=== PATIENT | female | born 1980 | race Caucasian/White ===

== ENCOUNTER 2019-12-03 15:52 | Emergency (ER) | payer OTHER, SELFPAY ==
[2019-12-03 17:18] VITALS: BP 163/97; PULSE 109; RESP 14; TEMP 37.6; O2SAT 97
--- NOTE | 2019-12-03 17:32 | ED.URI ---
HPI - URI/Sore Throat General Chief Complaint: Upper Respiratory Infection Stated Complaint: throat pain, body pain Time Seen by Provider: 12/03/19 17:15 Source: patient Mode of arrival: ambulatory History of Present Illness HPI Narrative: Kimberlyn is a 39-year-old female patient. She presents ambulatory to the emergency room. She states that she has been coughing for about a week. She states that this is from sinus drainage. She has sinus problems and sinus drainage. She tries to cough out the drainage which drains into the back of the throat. She thinks that this has made her muscles cramp up. She gets muscle cramps in the limbs. She has had no fever. She developed a sore throat since last night. Her tonsils are swollen. The pharynx is very red and inflamed . No vomiting. No diarrhea. No other complaints MD elicited complaint: cough, sore throat, nasal congestion, sinus pain and other ( sinus drainage) Pertinent past history: other ( history of GERD) Onset (ago): day(s) ( see HPI narrative) Consistency: intermittent Severity: moderate Description of mucous: clear and yellow Able to tolerate fluids by mouth: Yes Exacerbating factors: nothing Relieving factors: nothing Context: other ( see HPI narrative) Associated symptoms: other ( see HPI narrative for details) Treatments prior to arrival: acetaminophen Related Data Home Medications Medication Instructions Recorded Confirmed omeprazole 40 mg PO DAILY 12/03/19 12/03/19 Allergies Allergy/AdvReac Type Severity Reaction Status Date / Time Penicillins Allergy Unknown Hives Verified 12/03/19 17:18 adhesive tape Allergy BUMPS/ITCHY Verified 06/20/12 11:45 amoxicillin Allergy Hives Verified 12/03/19 17:18 Review of Systems Review of Systems: All systems reviewed & are unremarkable except as noted in HPI and below Constitutional: Constitutional: Reports as per HPI, Reports no additional constitutional complaints, Denies chills and Denies fever(s) Eyes: Eyes: Reports as per HPI, Reports no additional eye complaints and Denies change in vision ENT: Reports system reviewed and no additional complaints, except as documented, Reports nasal congestion and Reports sore throat Comments: sinus congestion sinus drainage and sinus pressure Cardiovascular: Cardiovascular: Reports as per HPI, Denies chest pain and Denies radiating jaw, neck or arm pain Respiratory: Respiratory: Reports as per HPI, Reports cough, Denies dyspnea and Denies wheezing Gastrointestinal: Gastrointestinal: Reports as per HPI, Denies diarrhea, Denies nausea and Denies vomiting Genitourinary: Genitourinary: Reports no additional female genitourinary complaints, Denies hematuria, Denies dysuria, Denies flank pain and Denies urinary incontinence Musculoskeletal: Musculoskeletal: Reports no additional musculoskeletal complaints and Reports muscle cramps Integumentary/Breasts: Skin/Breast: Reports system reviewed and no additional complaints, except as docu, Denies erythema and Denies rash Neurologic: Reports system reviewed and no additional complaints, except as documented, Denies vertigo, Denies dizziness, Denies syncope, Denies headache(s), Denies focal weakness, Denies numbness and Denies weakness Psychiatric: Psychiatric: Reports no additional psychiatric complaints, Denies anxiety and Denies depression Endocrine: Endocrine: Reports no additional endocrine complaints and Denies polydipsia Hematologic/Lymphatic: Hematologic/Lymphatic: Reports no additional hematologic/lymphatic complaints, Denies easy bleeding and Denies easy bruising Allergic/Immunologic: Allergic/Immunologic: Reports no additional allergic/immunologic complaints, Denies lip swelling and Denies tongue swelling [facility] Past Medical History Medical History (Updated 12/03/19 @ 18:33 by Giovany Negron MD) Erythema nodosum Factor 5 Leiden mutation, heterozygous GERD (gastroesophageal reflux disease) Surgical History Surgical H
[2019-12-03 17:46] LABS: Basophils Absolute Auto 0.09 K/mm3 (0.00-0.10); Basophils Percent Auto 0.5 % (0.0-1.0); Eosinophils Absolute Auto 0.05 K/mm3 (0.02-0.50); Eosinophils Percent Auto 0.3 % (1.0-6.0); Hematocrit 43.6 % (35.0-49.0); Hemoglobin 14.2 g/dL (12.0-15.0); Immature Granulocyte Absolute 0.12 K/mm3 (0.00-0.00); Immature Granulocyte Percent A 0.7 % (0.0-0.0); Lymphocytes Absolute Auto 2.28 K/mm3 (1.10-4.50); Lymphocytes Percent Auto 13.8 % (18.0-42.0); Mean Corpuscular HGB Conc 32.6 g/dL (32.0-36.0); Mean Corpuscular Hemoglobin 28.4 pg (27.0-31.0); Mean Corpuscular Volume 87.2 fL (78.0-102.0); Mean Platelet Volume 11.3 fl (9.2-11.8); Monocytes Absolute Auto 1.13 K/mm3 (0.10-0.90); Monocytes Percent Auto 6.8 % (2.0-11.0); Neutrophils Absolute Auto 12.9 K/mm3 (1.7-7.2); Neutrophils Percent Auto 77.9 % (50.0-70.0); Platelet Count Result 229 K/mm3 (150-420); Red Cell Distribution Width 14.3 % (11.6-14.4); White Blood Count 16.5 K/mm3 (4.8-10.8)
[2019-12-03 18:02] LABS: Influenza Control Valid (Valid)
[2019-12-03 18:13] LABS: Alanine Aminotransferase 27 U/L (14-59); Albumin Level 3.7 g/dL (3.4-5.0); Alkaline Phosphatase 113 U/L (46-116); Anion Gap 12.6 mmol/L (7-16); Aspartate Amino Transferase 19 U/L (15-37); Bilirubin,Total 0.7 mg/dL (0.00-1.00); Blood Urea Nitrogen 14 mg/dL (7-18); Calcium 9.3 mg/dL (8.5-10.1); Carbon Dioxide 29 mmol/L (21-32); Chloride 100 mmol/L (98-108); Estimated CRCL calculation 78 ml/min; Estimated Glomerular Filt Rate > 60; Glucose 105 mg/dL (70-99); Magnesium 2.1 mg/dL (1.8-2.4); Osmolality Calculated 284 mOsm/kg (285-295); Potassium 4.6 mmol/L (3.5-5.1); Sodium 137 mmol/L (136-145); Total Protein 8.8 g/dL (6.4-8.2)
[2019-12-03 18:41] VITALS: RESP 14; O2SAT 100
== END 2019-12-03 18:38 | disposition home or self-care (01) ==
PROVIDERS: Emergency Provider Surgery; PCP Internal Medicine
DX: J01.10 Acute frontal sinusitis, unspecified (principal); F17.200 Nicotine dependence, unspecified, uncomplicated
CPT/HCPCS: 36415; 80053; 83735; 85025; 87081; 87804; 87880; 99282; 99283

== ENCOUNTER 2020-04-01 02:50 | Emergency (ER) | payer OTHER, SELFPAY ==
[2020-04-01 02:50] VITALS: BP 166/95; PULSE 107; RESP 20; TEMP 36.9; O2SAT 98
--- NOTE | 2020-04-01 02:58 | ED.EXTPRO ---
HPI - Extremity Problem General Chief complaint: Unspecified Stated complaint: Right Leg Pain Time Seen by Provider: 04/01/20 02:59 Source: patient and RN notes reviewed Mode of arrival: ambulatory Limitations: no limitations History of Present Illness HPI Narrative: patient states that she stretched out her leg yesterday and felt pain her right leg just below her knee posteriorly. She then notices seemed to begin to swell around her ankle, leg hurts when she walks on it. MD Complaint: extremity pain and extremity swelling Onset (ago): day(s) (1) Pain Consistency: intermittent Location: right and lower extremity Quality: aching and dull Radiation: none Relieving factors: nothing Exacerbating factors: weight bearing Associated symptoms: denies other symptoms Related Data Home Medications Medication Instructions Recorded Confirmed omeprazole 40 mg PO DAILY 12/03/19 04/01/20 Allergies Allergy/AdvReac Type Severity Reaction Status Date / Time Penicillins Allergy Unknown Hives Verified 12/03/19 17:18 adhesive tape Allergy BUMPS/ITCHY Verified 06/20/12 11:45 amoxicillin Allergy Hives Verified 12/03/19 17:18 Review of Systems Review of Systems: All systems reviewed & are unremarkable except as noted in HPI and below Constitutional: Constitutional: Denies chills and Denies fever(s) Eyes: Eyes: Reports no additional eye complaints ENT: Reports system reviewed and no additional complaints, except as documented Cardiovascular: Cardiovascular: Reports chest pain (Only once yesterday none since.) Respiratory: Respiratory: Reports no additional respiratory complaints Gastrointestinal: Gastrointestinal: Reports no additional gastrointestinal complaints Musculoskeletal: Musculoskeletal: Reports no additional musculoskeletal complaints Integumentary/Breasts: Skin/Breast: Reports system reviewed and no additional complaints, except as docu Neurologic: Reports system reviewed and no additional complaints, except as documented Psychiatric: Psychiatric: Reports no additional psychiatric complaints Hematologic/Lymphatic: Hematologic/Lymphatic: Reports no additional hematologic/lymphatic complaints Allergic/Immunologic: Allergic/Immunologic: Reports no additional allergic/immunologic complaints [facility] Past Medical History Medical History (Updated 04/01/20 @ 03:41 by Oscar Jacobs MD) Erythema nodosum Factor 5 Leiden mutation, heterozygous GERD (gastroesophageal reflux disease) Obesity Surgical History Surgical History Ankle fracture H/O tubal ligation Hx of cholecystectomy Family History Family History Father Hypertension Family history of elevated blood lipids Sibling Hypertension Mother Family history of rheumatoid arthritis Family history of chronic obstructive pulmonary disease Social History Social History Smoking status: Current every day smoker Tobacco type: cigarettes Alcohol intake: current Substance use: never Exam Const: General: healthy appearing, no acute distress and alert Nutritional Appearance: well nourished and obese morbidly obese Orientation/consciousness: patient oriented x3 HENMT: Head: normal to inspection Ears: external ears normal General nose exam: Normal external nose present Face and sinus: normal facial exam Mouth: Yes lip normal and Yes moist mucous membranes Eyes: Conjunctivae: conjunctivae normal Pupils: Equal, round and reactive pupils present EOM: EOMs intact bilaterally Neck: Neck: normal visual inspection Resp: Effort & Inspection: normal respiratory effort Auscultation: clear to auscultation bilaterally Cardio: Rate: regular rate Rhythm: regular rhythm GI: Auscultation: normal bowel sounds Back/Spine/Pelvis: Cervical Spine: cervical ROM normal Thoracic/Lumbar Spine: thoraco-lum
[2020-04-01 03:17] LABS: Basophils Absolute Auto 0.05 K/mm3 (0.00-0.10); Basophils Percent Auto 0.5 % (0.0-1.0); Eosinophils Absolute Auto 0.38 K/mm3 (0.02-0.50); Eosinophils Percent Auto 3.5 % (1.0-6.0); Hematocrit 39.7 % (35.0-49.0); Hemoglobin 12.8 g/dL (12.0-15.0); Immature Granulocyte Absolute 0.05 K/mm3 (0.00-0.00); Immature Granulocyte Percent A 0.5 % (0.0-0.0); Lymphocytes Absolute Auto 3.93 K/mm3 (1.10-4.50); Lymphocytes Percent Auto 36.6 % (18.0-42.0); Mean Corpuscular HGB Conc 32.2 g/dL (32.0-36.0); Mean Corpuscular Hemoglobin 27.9 pg (27.0-31.0); Mean Corpuscular Volume 86.7 fL (78.0-102.0); Mean Platelet Volume 10.9 fl (9.2-11.8); Monocytes Absolute Auto 0.59 K/mm3 (0.10-0.90); Monocytes Percent Auto 5.5 % (2.0-11.0); Neutrophils Absolute Auto 5.7 K/mm3 (1.7-7.2); Neutrophils Percent Auto 53.4 % (50.0-70.0); Platelet Count Result 209 K/mm3 (150-420); Red Blood Count 4.58 M/mm3 (4.20-5.40); Red Cell Distribution Width 14.5 % (11.6-14.4); White Blood Count 10.7 K/mm3 (4.8-10.8)
[2020-04-01 03:29] LABS: Anion Gap 13.1 mmol/L (7-16); Blood Urea Nitrogen 17 mg/dL (7-18); Calcium 8.5 mg/dL (8.5-10.1); Carbon Dioxide 27 mmol/L (21-32); Chloride 106 mmol/L (98-108); Estimated CRCL calculation 56 ml/min; Estimated Glomerular Filt Rate 42; Glucose 112 mg/dL (70-99); Osmolality Calculated 296 mOsm/kg (285-295); Potassium 4.1 mmol/L (3.5-5.1); Sodium 142 mmol/L (136-145)
[2020-04-01 03:30] LABS: CRP 2.9 mg/dL (0.0-0.9)
[2020-04-01 03:31] LABS: D Dimer 0.73 mg/L (0.19-0.50)
[2020-04-01] MEDS: APIXABAN 2.5 MG TABLET 10 MG (03:50)
[2020-04-01 03:57] VITALS: BP 166/95; PULSE 100; RESP 20; TEMP 37.1; O2SAT 97
[2020-04-03 14:51] LABS: Creatine Kinase 642 U/L (26-192)
== END 2020-04-01 03:59 | disposition home or self-care (01) ==
PROVIDERS: Emergency Provider Emergency Medicine; PCP Internal Medicine
DX: I82.4Z1 Acute embolism and thrombosis of unspecified deep veins of right distal lower extremity (principal)
CPT/HCPCS: 36415; 80048; 82550; 85025; 85380; 86140; 99283; A9270

== ENCOUNTER 2020-04-01 04:48 | Emergency (ER) | payer OTHER, SELFPAY ==
--- NOTE | ~2020-04-01 | CT_ITS ---
EXAMINATION: CTA chest PE protocol DATE: 04/01/2020 05:26 INDICATION: Chest tightness TECHNIQUE: Computed tomography (CT) pulmonary angiogram of the chest was performed with 100 mL Omnipa que-350 intravenous contrast. Additional 3D reconstructions utilizing coronal maximum intensity proje ction (MIP) were performed. Automated exposure control and iterative reconstruction technique were em ployed. The dose-length product was 911.99 mGy-cm. COMPARISON: None FINDINGS: Good contrast opacification of the pulmonary arteries. There is mild streak artifact from dense contr ast in the superior vena cava and right atrium. Mild scattered respiratory motion artifact which does not significantly limit evaluation. No pulmonary embolism. No pneumonia, pulmonary edema or other pu lmonary infiltrates. No pleural effusion or pneumothorax. Heart size is normal. No pericardial effusi on. Thoracic aorta is normal in caliber with no dissection. Cholecystectomy clips the gallbladder fos sa. Mild thoracic spondylosis. IMPRESSION: 1. No pulmonary embolism or other acute cardiopulmonary disease. Reviewed, dictated and finalized at location A.
--- NOTE | 2020-04-01 04:52 | ED.CHESTPAIN ---
HPI - Chest Pain General Chief Complaint: Chest Pain Stated Complaint: Shakiness Time Seen by Provider: 04/01/20 04:48 Source: patient and RN notes reviewed Mode of arrival: ambulatory Limitations: no limitations History of Present Illness HPI narrative: Patient returns after just being discharged. She called and stated that she was feeling shaky all over. She also complained of some chest tightness. She had this yesterday also but then it completely resolved and when she left at discharge earlier today she denied any chest pain. MD complaint: chest discomfort Onset (ago): minute(s) (30) Timing of current episode: constant Prior episodes: Yes Onset: during rest Pain location: parasternal Pain radiation: none Severity: moderate Quality: tightness Relieving factors: nothing Exacerbating factors: nothing Treatment prior to arrival: other ( Given Eliquis for possible DVT 1 hour ago) Risk Factors Pulmonary embolism risk factors: clotting disorder, history of deep vein thrombosis and morbid obesity Related Data On Oral Contraceptives: No Home Medications Medication Instructions Recorded Confirmed omeprazole 40 mg PO DAILY 12/03/19 04/01/20 Allergies Allergy/AdvReac Type Severity Reaction Status Date / Time Penicillins Allergy Unknown Hives Verified 12/03/19 17:18 adhesive tape Allergy BUMPS/ITCHY Verified 06/20/12 11:45 amoxicillin Allergy Hives Verified 12/03/19 17:18 Review of Systems Eyes: Eyes: Reports no additional eye complaints ENT: Reports system reviewed and no additional complaints, except as documented Cardiovascular: Cardiovascular: Reports no additional cardiovascular complaints Gastrointestinal: Gastrointestinal: Reports no additional gastrointestinal complaints Musculoskeletal: Musculoskeletal: Reports no additional musculoskeletal complaints Integumentary/Breasts: Skin/Breast: Reports system reviewed and no additional complaints, except as docu Neurologic: Reports system reviewed and no additional complaints, except as documented Psychiatric: Psychiatric: Reports no additional psychiatric complaints Endocrine: Endocrine: Reports no additional endocrine complaints Hematologic/Lymphatic: Hematologic/Lymphatic: Reports no additional hematologic/lymphatic complaints [facility] Past Medical History Medical History Erythema nodosum Factor 5 Leiden mutation, heterozygous GERD (gastroesophageal reflux disease) Obesity Surgical History Surgical History Ankle fracture H/O tubal ligation Hx of cholecystectomy Social History Social History Smoking status: Current every day smoker Tobacco type: cigarettes Alcohol intake: current Substance use: never Exam Const: General: healthy appearing and no acute distress Nutritional Appearance: well nourished and obese morbidly obese Orientation/consciousness: patient oriented x3 HENMT: Head: normal to inspection Ears: external ears normal General nose exam: Normal external nose present Face and sinus: normal facial exam Mouth: Yes lip normal and Yes moist mucous membranes Eyes: Conjunctivae: conjunctivae normal Pupils: Equal, round and reactive pupils present Neck: Neck: normal visual inspection Resp: Effort & Inspection: normal respiratory effort Auscultation: clear to auscultation bilaterally Cardio: Rate: tachycardic Rhythm: regular rhythm GI: Auscultation: normal bowel sounds Back/Spine/Pelvis: Cervical Spine: cervical ROM normal Thoracic/Lumbar Spine: thoraco-lumbar ROM normal Skin: General skin exam: normal color Neuro: General: patient oriented x3, moves all extremities and no focal motor deficits Speech: normal speech Gait exam (Neuro): Normal gait present Extrem: Other: Exam for right lower extremity is unchanged from earlier visit today. Still has mild war
--- NOTE | 2020-04-01 04:54 | ECG_ITS ---
Measurements Intervals [place] Rate: 99 P: 31 OR: 149 QRS: -6 QRSD: 89 T: 15 QT: 353 QTc: 454 Interpretive Statements SINUS RHYTHM BORDERLINE ST-T WAVE ABNORMALITY- ANTERIOR LEADS BORDERLINE ECG Electronically Signed On 04-01-2020 8:33:37 CDT by Fabrice Barker D.O.
[2020-04-01 05:07] VITALS: PULSE 99
[2020-04-01 05:10] VITALS: BP 178/80; PULSE 112; RESP 20; TEMP 37.4; O2SAT 98
--- NOTE | 2020-04-01 05:16 | PC.NURSE ---
pt to xray for ct scan per wheelchair with jennifer
[2020-04-01 05:20] LABS: Troponin I < 0.02 ng/mL (0.00-0.056)
--- NOTE | 2020-04-01 05:25 | PC.NURSE ---
pt returned to room, alarm security or surveillance monitor applied.
--- NOTE | 2020-04-01 05:34 | PC.NURSE ---
pt denies chest pain or chest tightness at this time, pt states only when i shake, like im nervous . pt on cell phone talking.
[2020-04-01 06:43] VITALS: BP 141/62; PULSE 88; RESP 20; TEMP 37.1; O2SAT 97
== END 2020-04-01 06:50 | disposition home or self-care (01) ==
PROVIDERS: Emergency Provider Emergency Medicine; PCP Internal Medicine
DX: F41.1 Generalized anxiety disorder (principal); R07.89 Other chest pain
CPT/HCPCS: 36415; 71275; 84484; 93005; 99284; Q9965

== ENCOUNTER 2020-04-01 07:56 | Outpatient (CLI) | payer OTHER, SELFPAY ==
--- NOTE | ~2020-04-01 | US_ITS ---
EXAMINATION:US venous doppler LE RT INDICATION:Thrombosis of the deep veins of the lower extremity. Right leg pain and swelling. TECHNIQUE: Multiple grayscale, color flow and Doppler images of the right lower extremity deep venous systems were obtained and reviewed. COMPARISON:No prior studies for comparison. FINDINGS: The common femoral, superficial femoral and popliteal veins demonstrate normal respiratory variation, augmentation and compressibility. Color flow is also seen within the posterior tibial, pe roneal, greater saphenous and profunda veins. IMPRESSION: 1: No lower extremity deep venous thrombosis. Reviewed, dictated and finalized at location A.
== END 2020-04-01 07:57 | disposition home or self-care (01) ==
PROVIDERS: PCP Internal Medicine; Visit Provider Emergency Medicine
DX: I82.409 Acute embolism and thrombosis of unspecified deep veins of unspecified lower extremity (principal)
CPT/HCPCS: 93971

== ENCOUNTER 2020-04-02 11:36 | Outpatient (CLI) | payer OTHER, SELFPAY ==
--- NOTE | 2020-04-02 12:00 | ECG_ITS ---
Measurements Intervals [place] Rate: 79 P: 9 MS: 149 QRS: 29 QRSD: 84 T: 36 QT: 383 QTc: 441 Interpretive Statements SINUS RHYTHM DELAYED PRECORDIAL R/S TRANSITION BORDERLINE ST-T WAVE ABNORMALITY- ANTERIOR LEADS BASELINE ARTIFACT- III, AVF BORDERLINE ECG Electronically Signed On 04-02-2020 12:27:11 CDT by Fabrice Barker D.O.
[2020-04-02 12:40] LABS: BNP 98.3 pg/mL (0-100)
[2020-04-02 12:42] LABS: Alanine Aminotransferase 41 U/L (14-59); Albumin Level 3.4 g/dL (3.4-5.0); Alkaline Phosphatase 99 U/L (46-116); Anion Gap 11.5 mmol/L (7-16); Aspartate Amino Transferase 45 U/L (15-37); Bilirubin,Total 0.4 mg/dL (0.00-1.00); Blood Urea Nitrogen 13 mg/dL (7-18); CRP 2.3 mg/dL (0.0-0.9); Calcium 8.8 mg/dL (8.5-10.1); Carbon Dioxide 30 mmol/L (21-32); Chloride 104 mmol/L (98-108); Estimated Glomerular Filt Rate > 60; Free T4 Free Thyroxine 1.07 ng/dL (0.76-1.46); Glucose 98 mg/dL (70-99); Osmolality Calculated 292 mOsm/kg (285-295); Potassium 4.5 mmol/L (3.5-5.1); Sodium 141 mmol/L (136-145); Thyroid Stimulating Hormone 1.56 uIU/mL (0.36-3.74); Total Protein 7.9 g/dL (6.4-8.2)
[2020-04-02 12:44] LABS: Creatine Kinase 1830 U/L (26-192); Troponin I < 0.02 ng/mL (0.00-0.056)
[2020-04-05 02:57] LABS: Hepatitis A Antibody IgM Nonreactive; Hepatitis B Core Antibody Nonreactive (Nonreactive); Hepatitis B Surface Antigen Nonreactive (Nonreactive); Hepatitis C Signal to Cutoff 0.04 ratio (<1.00); Hepatitis C Virus Antibody Nonreactive (Nonreactive)
== END 2020-04-02 11:37 | disposition home or self-care (01) ==
LOC: CHSLAB 11:37
PROVIDERS: PCP Internal Medicine; Visit Provider Internal Medicine
DX: R94.31 Abnormal electrocardiogram [ECG] [EKG] (principal); R07.9 Chest pain, unspecified; R06.00 Dyspnea, unspecified; R94.5 Abnormal results of liver function studies
CPT/HCPCS: 36415; 80053; 80074; 82550; 82553; 83880; 84439; 84443; 84481; 84484; 85380; 86140; 93005

== ENCOUNTER 2020-04-03 14:15 | Outpatient (CLI) | payer OTHER, SELFPAY ==
--- NOTE | 2020-04-03 14:22 | ECHO_ITS ---
Patient Info Name: Kimberlyn Oviedo Age: 39 years : 1980 Gender: Female Ht: 62 in Wt: 237 lbs BSA: 2.23 m2 HR: 84 bpm BP: 154 / 84 mmHg Heart Rhythm: Sinus Rhythm Technical Quality: Fair Exam Date: 04/03/2020 3:07 PM Exam Location: [facility] Patient Status: Outpatient Admit Date: 04/03/2020 Staff Ordering Physician: Isaiah Esteves MD Pharmacy Consultant: Komal Gamble RDCS Attending Provider: Isaiah Esteves MD Exam Type: CA echo doppler color flow Study Info Indications R94.31 - Abnormal electrocardiogram ECG EKG Complete two-dimensional, color flow and Doppler transthoracic echocardiogram is performed. Strain analysis performed. History/Risk Factors Hypertension: No Dyslipidemia: No Congenital Heart Disease (CHD): No Peripheral Arterial Disease (PAD): No Myocardial Infarction (TN): No Chronic Lung Disease: No Obesity: Yes Renal Disease: No Coronary Artery Disease (CAD) No Congestive Heart Failure (CHF): No Cardiomyopathy/LV Systolic Dysfunction: No Date of Last Tobacco Use: 04/03/2020 Diabetes Mellitus: No COPD: No Tobacco Use: Current - Every Day If Any Current, Tobacco Type: Cigarettes If Current - Every Day \T\ Cigarettes, Amount: Heavy Tobacco Use (>=10/day) Cerebrovascular Disease: No Deep Vein Thrombosis (DVT): None Dialysis: None Frailty Scale (CSHA): 2: Well Cardiac Arrest: No Prior Interventions Pacemaker: No PCI: No CABG: No Valve Surgery: No ICD: No PV Intervention: None Heart Transplant: No Summary 1. Left ventricular chamber dimension is normal. 2. Left ventricular systolic function is normal, estimated at 60-65%. 3. The left ventricular diastolic function is grade I diastolic dysfunction. 4. E/e' is not calculated. 5. Global longitudinal strain is abnormal at -12.5%. 6. Left atrial chamber dimension is mildly enlarged. 7. No pulmonary hypertension, estimated pulmonary arterial systolic pressure is 23 mmHg. Recommendations * Smoking cessation counseling is recommended for this patient. Left Ventricle E/e' is not calculated. Global longitudinal strain is abnormal at -12.5%. Left ventricular chamber dimension is normal. Left ventricular systolic function is normal, estimated at 60-65%. The left ventricular diastolic function is grade I diastolic dysfunction. Right Ventricle Right ventricular chamber dimension is normal. Right ventricular systolic function is normal. Left Atria Left atrial chamber dimension is mildly enlarged. Right Atria Right atrial chamber dimension is normal. Aortic Valve The aortic valve is trileaflet. There is no aortic valve stenosis. There is no aortic valve regurgitation. Pulmonic Valve There is no pulmonic regurgitation. Mitral Valve There is no mitral valve stenosis. There is no mitral valve regurgitation. Tricuspid Valve There is no tricuspid valve regurgitation. No pulmonary hypertension, estimated pulmonary arterial systolic pressure is 23 mmHg. Pericardium/Pleural There is no pericardial effusion. Inferior Vena Cava Normal inferior vena cava with >50% collapse upon inspiration consistent with normal right atrial pressure, 5 mmHg. Aorta The aortic root size at the sinus of Valsalva is normal. Left Ventricular Outflow Tract Name
== END 2020-04-03 14:16 | disposition home or self-care (01) ==
LOC: CHSIMG 14:16
PROVIDERS: PCP Internal Medicine; Visit Provider Internal Medicine
DX: R94.31 Abnormal electrocardiogram [ECG] [EKG] (principal)
CPT/HCPCS: 93306

== ENCOUNTER 2020-04-04 09:47 | Outpatient (CLI) | payer OTHER, SELFPAY ==
--- NOTE | ~2020-04-04 | US_ITS ---
US right upper quadrant DATE: 04/04/2020 12:25 INDICATION: Elevated liver enzymes TECHNIQUE: Real-time imaging of liver, pancreas, gallbladder areas COMPARISON: 06/18/2019 CT abdomen pelvis FINDINGS: No hepatic or pancreatic space-occupying mass lesion is evident. Normal hepatopedal portal venous flow direction. The gallbladder is surgically absent. The common bile duct measures 4 mm, within normal range. IMPRESSION: Status post cholecystectomy Reviewed, dictated and finalized at Location A. Reviewed, dictated and finalized at location A. IMPRESSION: Status post cholecystectomy
== END 2020-04-04 09:48 | disposition home or self-care (01) ==
PROVIDERS: PCP Internal Medicine; Visit Provider Internal Medicine
DX: R94.5 Abnormal results of liver function studies (principal)
CPT/HCPCS: 76705

== ENCOUNTER 2020-12-30 23:14 | Observation (INO) | payer OTHER, SELFPAY ==
--- NOTE | ~2020-12-30 | XR_ITS ---
EXAMINATION: XR chest 1V portable 12/30/2020 23:54 INDICATION: Chest pain PROCEDURE: AP portable chest COMPARISON: 12/11/2012 FINDINGS: The lungs are clear. The cardiomediastinal silhouette is within normal limits. There are no pleural effusions. There is no pneumothorax suspected. IMPRESSION: 1: NO ACUTE CARDIOPULMONARY DISEASE. Reviewed, dictated and finalized at location A. R PROFESSIONAL ENGINEER
--- NOTE | ~2020-12-30 | CT_ITS ---
EXAMINATION: CT brain wo con EXAM DATE: 12/31/2020 09:03 INDICATION: General headache, right eye visual disturbance. Left-sided head paresthesia. TECHNIQUE: Spiral CT of the head was performed without contrast. Axial, coronal and sagittal images were reviewed. The dose-length product (DLP) for this examination was 605.33 mGy-cm. The exposure w as tailored according to patient size, and iterative reconstruction (ASIR) was used as additional dos e reduction technique. Comparison is made to prior examination from 05/14/2014. FINDINGS: There is no acute intraparenchymal hemorrhage. No evidence of intraparenchymal brain mass lesion. No evidence of acute infarction. There is no mass effect or midline shift. The ventricles are normal in size. There are no extra-axial collections. There are no acute calvarial fractures. T he orbits are unremarkable. Soft tissue is unremarkable. The visualized sinuses and mastoid air petar ls are well aerated. IMPRESSION: 1. Unremarkable head CT examination. Reviewed, dictated and finalized at location B. [employer]
[2020-12-30 23:15] VITALS: BP 159/86; PULSE 114; RESP 20; TEMP 36.9; O2SAT 100
--- NOTE | 2020-12-30 23:15 | ECG_ITS ---
Measurements Intervals [place] Rate: 105 P: 36 ME: 153 QRS: 6 QRSD: 93 T: 46 QT: 366 QTc: 485 Interpretive Statements SINUS TACHYCARDIA INCOMPLETE RIGHT BUNDLE BRANCH BLOCK BORDERLINE ST ABNORMALITY- ANTEROLAT/HIGH LAT LEADS ABNORMAL ECG Electronically Signed On 12-31-2020 7:17:08 BETTING AGENCY COUNTER CLERK by Fabrice Barker D.O.
[2020-12-30 23:25] VITALS: PULSE 111
[2020-12-30] MEDS: ASPIRIN 81 MG CHEWABLE TABLET 324 MG PO (23:44)
--- NOTE | 2020-12-30 23:50 | ED.CHESTPAIN ---
HPI - Chest Pain General Chief Complaint: Chest Pain Stated Complaint: chest pain Source: patient Mode of arrival: ambulatory Limitations: no limitations History of Present Illness HPI narrative: started around 10:00 pm tonight. pt noted some owen to her left shoulder and then a numbness feeling. The numbness spread to her left chest, left jaw and neck and left back. It really isnt pain per patient, but pins and neddles numbness. SHe has no SOB/ no NV/ no family history complaint: chest pain Onset (ago): minute(s) Prior episodes: No Pain location: left chest Pain radiation: left arm, back, neck and jaw/teeth Severity: moderate Quality: other (tingling and numbness) Relieving factors: nothing Exacerbating factors: nothing Treatment prior to arrival: none Risk Factors Coronary artery disease risk factors: smoking history Thoracic aortic dissection risk factors: none Pulmonary embolism risk factors: clotting disorder and morbid obesity Related Data Home Medications Medication Instructions Recorded Confirmed omeprazole 40 mg PO DAILY 12/03/19 12/30/20 Allergies Allergy/AdvReac Type Severity Reaction Status Date / Time Penicillins Allergy Unknown Hives Verified 12/03/19 17:18 adhesive tape Allergy BUMPS/ITCHY Verified 06/20/12 11:45 amoxicillin Allergy Hives Verified 12/03/19 17:18 Review of Systems Constitutional: Constitutional: Reports no additional constitutional complaints Eyes: Eyes: Reports no additional eye complaints ENT: Reports system reviewed and no additional complaints, except as documented Cardiovascular: Cardiovascular: Reports no additional cardiovascular complaints Respiratory: Respiratory: Reports no additional respiratory complaints Gastrointestinal: Gastrointestinal: Reports no additional gastrointestinal complaints Genitourinary: Genitourinary: Reports no additional female genitourinary complaints Musculoskeletal: Musculoskeletal: Reports no additional musculoskeletal complaints Integumentary/Breasts: Skin/Breast: Reports system reviewed and no additional complaints, except as docu Neurologic: Reports system reviewed and no additional complaints, except as documented Psychiatric: Psychiatric: Reports no additional psychiatric complaints Endocrine: Endocrine: Reports no additional endocrine complaints Hematologic/Lymphatic: Hematologic/Lymphatic: Reports no additional hematologic/lymphatic complaints Allergic/Immunologic: Allergic/Immunologic: Reports no additional allergic/immunologic complaints [facility] Past Medical History Medical History (Updated 12/31/20 @ 06:49 by Glenny Arambula MD) Erythema nodosum Factor 5 Leiden mutation, heterozygous GERD (gastroesophageal reflux disease) Obesity Surgical History Surgical History Ankle fracture H/O tubal ligation Hx of cholecystectomy Family History Family History Father Hypertension Family history of elevated blood lipids Sibling Hypertension Mother Family history of rheumatoid arthritis Family history of chronic obstructive pulmonary disease Social History Social History Smoking status: Current every day smoker Tobacco type: cigarettes Second hand tobacco smoke exposure: No Alcohol intake: former Substance use: never Substance use type: does not use Gender identity (if verbalized by the patient): Female Sexual Orientation (if Verbalized by the Patient): Straight or Heterosexual Spiritual care concerns: No Exam Const: General: no acute distress and alert Nutritional Appearance: well nourished and obese Orientation/consciousness: patient oriented x3 HENMT: Head: normal to inspection Mouth: Yes moist mucous membranes Throat: posterior oropharynx normal Eyes: Conjunctivae: conjunctivae normal Pupils: Equal, rou
[2020-12-31 00:07] LABS: Basophils Absolute Auto 0.08 K/mm3 (0.00-0.10); Basophils Percent Auto 0.7 % (0.0-1.0); Eosinophils Absolute Auto 0.22 K/mm3 (0.02-0.50); Eosinophils Percent Auto 1.9 % (1.0-6.0); Hematocrit 42.5 % (35.0-49.0); Hemoglobin 13.6 g/dL (12.0-15.0); Immature Granulocyte Absolute 0.06 K/mm3 (0.00-0.00); Immature Granulocyte Percent A 0.5 % (0.0-0.0); Lymphocytes Percent Auto 31.8 % (18.0-42.0); Mean Corpuscular Hemoglobin 27.9 pg (27.0-31.0); Mean Corpuscular Volume 87.1 fL (78.0-102.0); Mean Platelet Volume 12.2 fl (9.2-11.8); Monocytes Absolute Auto 0.59 K/mm3 (0.10-0.90); Monocytes Percent Auto 5.1 % (2.0-11.0); Platelet Count Result 251 K/mm3 (150-420); Red Blood Count 4.88 M/mm3 (4.20-5.40); Red Cell Distribution Width 13.5 % (11.6-14.4); White Blood Count 11.6 K/mm3 (4.8-10.8)
[2020-12-31 00:21] LABS: D Dimer 0.35 mg/L (0.19-0.50)
[2020-12-31 00:27] LABS: Alanine Aminotransferase 29 U/L (14-59); Albumin Level 3.4 g/dL (3.4-5.0); Alkaline Phosphatase 102 U/L (46-116); Anion Gap 10 mmol/L (8-16); Aspartate Amino Transferase 13 U/L (15-37); Bilirubin,Total 0.4 mg/dL (0.00-1.00); Blood Urea Nitrogen 17 mg/dL (7-18); Calcium 8.8 mg/dL (8.5-10.1); Carbon Dioxide 27 mmol/L (21-32); Chloride 101 mmol/L (98-108); Estimated CRCL calculation 76 ml/min; Estimated Glomerular Filt Rate 58; Glucose 143 mg/dL (70-99); Osmolality Calculated 289 mOsm/kg (285-295); Potassium 3.8 mmol/L (3.5-5.1); Sodium 138 mmol/L (136-145); Total Protein 7.5 g/dL (6.4-8.2); Troponin I < 4.0 ng/L (0.00-60.4)
[2020-12-31 01:01] VITALS: BP 129/68; PULSE 97; RESP 20; TEMP 36.6; O2SAT 95
[2020-12-31 01:44] VITALS: BMI 49.2
--- NOTE | 2020-12-31 02:00 | ADMGEN ---
This patient, Kimberlyn Oviedo, was admitted to 2nd Floor Room 205-1. Patient oriented to hospital policies and general routines including ID bracelet, bed and alarms, visiting hours, pain management, procedures, bathroom and other care routines, personal items, smoking policy, room service/diet, and visiting hours. Information on how to activate the Rapid Response Team has been discussed. Patient are encouraged to report perceived risks to care and to ask questions if they do not understand what they are told or what they should do.
--- NOTE | 2020-12-31 02:04 | PC.NURSE ---
Dr. Hampton notified of pt's c/o a headache at a pain level of '5' on a 1-10 pain scale; New orders received and noted.
[2020-12-31] MEDS: ACETAMINOPHEN 500 MG TABLET 1000 MG PO ×2 (02:42→08:25)
[2020-12-31 04:00] VITALS: BP 111/59; PULSE 80; RESP 20; TEMP 36.7; O2SAT 95
--- NOTE | 2020-12-31 05:36 | ECG_ITS ---
Measurements Intervals [place] Rate: 72 P: 35 TN: 161 QRS: 3 QRSD: 89 T: 9 QT: 410 QTc: 451 Interpretive Statements SINUS RHYTHM INCOMPLETE RIGHT BUNDLE BRANCH BLOCK BORDERLINE T WAVE ABNORMALITY- ANTERIOR LEADS BORDERLINE ECG Electronically Signed On 12-31-2020 7:16:39 MUSIC LIBRARY ASSISTANT by Fabrice Barker D.O.
[2020-12-31 05:50] LABS: Troponin I 4.3 ng/L (0.00-60.4)
[2020-12-31 07:25] VITALS: BP 107/65; PULSE 71; RESP 18; TEMP 36.1; O2SAT 95
[2020-12-31 08:00] VITALS: PULSE 71
--- NOTE | 2020-12-31 08:12 | ECG_ITS ---
Measurements Intervals [place] Rate: 71 P: -3 NV: 148 QRS: 1 QRSD: 90 T: 7 QT: 426 QTc: 463 Interpretive Statements SINUS RHYTHM INCOMPLETE RIGHT BUNDLE BRANCH BLOCK T WAVE ABNORMALITY IN ANTERIOR LEADS- CONSIDER ISCHEMIA ABNORMAL ECG Electronically Signed On 12-31-2020 8:28:18 HARNESS FITTER by Fabrice Barker D.O.
[2020-12-31 12:00] VITALS: BP 133/82; PULSE 76; PULSE 82; RESP 18; TEMP 36; O2SAT 97
--- NOTE | 2020-12-31 12:22 | PM.SD2 ---
Same Day Admit/Disch: HPI History of Present Illness Chief complaint: chest pain <DUTCH Rutledge - Last Filed: 12/31/20 13:15> Narrative: Kimberlyn Oviedo is a 40 year old female who presented to ED with complaints of chest pain. Patient has a past medical history of GERD, erythema nodosum,, factor V Leiden and obesity. According to patient yesterday she started experiencing chest pain that migrated to her left shoulder and arm with numbness and tingling. Patient noted that she had numbness to her left side of her upper body. Patient also noted that she had a headache with visual disturbance she describes her visual disturbance as a line that went down the middle of her right eye. Patient notes that she has never had a headache and that this was disturbing to her. Patient troponin x3 negative, she did have 2 abnormal EKGs . It was suggested that the patient complete a stress test. Stress test will have to be completed as an outpatient. I did speak with Dr. Barker who agreed the patient is EKG . He noted that the patient is asymptomatic and labs and diagnostic tests are negative for DC it is safe to send patient home with outpatient stress test. Patient also informed me that a couple of months ago she completed a stress test and had a director cardiac blood. Patient noted that it was believed that she had a heatstroke and afterwards her primary care physician monitor her cardiac activity. no significant labs to report. Chest x-ray and CT of the head. Patient has not had any chest pain since her admission she still does continue to have a headache that is relieved with Tylenol. Patient instructed that if she feels any more chest pain or uncontrollable headaches she is to return back to our ED. The patient denies SOB, CP, palpitation, extremity numbness, lightheadedness, dizziness, constipation, diarrhea, chills, or fever. <DUTCH Rutledge - Last Filed: 12/31/20 13:15> [facility] Past Medical History Medical History: Medical History (Updated 12/31/20 @ 06:49 by Glenny Arambual MD) Erythema nodosum Factor 5 Leiden mutation, heterozygous GERD (gastroesophageal reflux disease) Obesity <DUTCH Rutledge - Last Filed: 12/31/20 13:15> Surgical History Surgical History: Surgical History Ankle fracture H/O tubal ligation Hx of cholecystectomy <DUTCH Rutledge - Last Filed: 12/31/20 13:15> Family History Family History: Family History Father Hypertension Family history of elevated blood lipids Sibling Hypertension Mother Family history of rheumatoid arthritis Family history of chronic obstructive pulmonary disease <DUTCH Rutledge - Last Filed: 12/31/20 13:15> Social History Social History: Social History Smoking status: Current every day smoker Tobacco type: cigarettes Second hand tobacco smoke exposure: No Alcohol intake: former Substance use: never Substance use type: does not use Gender identity (if verbalized by the patient): Female Spiritual care concerns: No <DUTCH Rutledge - Last Filed: 12/31/20 13:15> Same Day Admit/Disch: Med Pre-admit Medications Home Medications: Home Medications Medication Instructions Recorded Confirmed Type omeprazole 40 mg PO DAILY 12/03/19 12/30/20 History <DUTCH Rutledge - Last Filed: 12/31/20 13:15> Exam Narrative: Exam Narrative: GENERAL: This is a well-nourished, well-developed patient, in no apparent distress. HEAD: normocephalic, atraumatic. EYES: PERRL. Sclera clear/white. Vision is grossly intact. EARS: External ears normal, auditory canals clear and without drainage, TMs normal without perforation. Hearing grossly intact. NOSE: External nose normal with no obvious nasal discharge, nares withou
--- NOTE | 2020-12-31 13:20 | PC.NURSE ---
Patient ambulated to bathroom and back. Patient being discharged. Able to dress in clothing from home with no assist. IV site removed, tip intact. Dressing applied to site. All belongings gathered together and sent home with patient.All discharge instructions and education reviewed with patient. Patient states understanding. Denies any question at discharge. Patient accompanied to front door via wheelchair by this nurse. Left via private vehicle with family member.
--- NOTE | 2021-01-01 10:26 | PC.NURSE ---
Pt states she received and understood her discharge instructions. Pt has no comments regarding her care.
== END 2020-12-31 13:20 | disposition home or self-care (01) ==
LOC: CHSED 12-31 01:12 → CHS2ND 12-31 07:25
PROVIDERS: Admitting Provider Emergency Medicine; Emergency Provider Emergency Medicine; PCP Internal Medicine; Visit Provider Emergency Medicine
DX: R07.9 Chest pain, unspecified (principal); R20.2 Paresthesia of skin; K21.9 Gastro-esophageal reflux disease without esophagitis; E66.9 Obesity, unspecified; D68.51 Activated protein C resistance; Z90.49 Acquired absence of other specified parts of digestive tract; L52 Erythema nodosum
CPT/HCPCS: 36415; 70450; 71045; 80053; 84484; 85025; 85380; 93005; 99285; A9270; G0378; G0379

== ENCOUNTER 2021-01-12 13:12 | Outpatient (CLI) | payer OTHER, SELFPAY ==
--- NOTE | ~2021-01-12 | MM_ITS ---
EXAMINATION: MM screening charline BI w yoel HISTORY: Screening mammogram TECHNIQUE: Craniocaudal and mediolateral oblique 3-D tomosynthesis images were obtained and synthetic 2-D images were generated. CAD analysis was submitted and interpreted. COMPARISON: No prior mammogram is available for comparison at this institution. BREAST PARENCHYMAL COMPOSITION: There are scattered areas of fibroglandular density. FINDINGS: There is no evidence of suspicious mass, calcification, or architectural distortion to sugg est malignancy in either breast. There has been no suspicious interval change. IMPRESSION: 1. No mammographic evidence of malignancy. 2. Recommend routine screening mammography in one year. BI-RADS Category 1: Negative Reviewed, dictated and finalized at location A.
== END 2021-01-12 13:13 | disposition home or self-care (01) ==
PROVIDERS: PCP Internal Medicine; Visit Provider Nurse Practitioner Family
DX: Z12.31 Encounter for screening mammogram for malignant neoplasm of breast (principal)
CPT/HCPCS: 77063; 77067

== ENCOUNTER 2021-05-16 09:09 | Emergency (ER) | payer OTHER, SELFPAY ==
--- NOTE | ~2021-05-16 | XR_ITS ---
XR chest 1V portable DATE: 05/16/2021 09:38 INDICATION: Chest pain, dyspnea TECHNIQUE: Portable AP chest on 05/16/2021 at 0950 hours COMPARISON: 12/31/2020 portable AP chest FINDINGS: Normal heart size. No hilar or mediastinal enlargement. No pulmonary infiltrate or consolid ation, pleural effusion or pulmonary vascular congestion or pneumothorax. IMPRESSION: No active cardiopulmonary disease Reviewed, dictated and finalized at location A.
--- NOTE | ~2021-05-16 | CT_ITS ---
EXAMINATION: CTA chest PE protocol DATE: 05/16/2021 12:29 INDICATION: Dyspnea, chest tightness. TECHNIQUE: Computed tomography angiography (CTA) of the chest was performed with 100 mL Omnipaque-350 intravenous contrast timed to evaluate the pulmonary arteries. Coronal maximum intensity projection 3D-reconstructions were created by the technologist. Automated exposure control and iterative reconst ruction technique were employed. Exam dose: 1035.07 mGy-cm total exam DLP. COMPARISON: 04/01/2020 CT pulmonary scan 05/12/2021 portable AP chest FINDINGS: There is moderate opacification the pulmonary arteries and no apparent pulmonary embolism. No thoracic aortic aneurysm or dissection. Heart size is within normal range. No pericardial or pleural effusion. S no pulmonary infiltrate or consolidation or pulmonary mass lesion. No pneumothorax. Status post cho lecystectomy. Included upper abdominal structures are unremarkable. IMPRESSION: No evidence of pulmonary embolism Reviewed, dictated and finalized at Location [facility]. Reviewed, dictated and finalized at location A.
--- NOTE | 2021-05-16 09:13 | ECG_ITS ---
Measurements Intervals [place] Rate: 104 P: 38 NM: 124 QRS: 9 QRSD: 94 T: 55 QT: 364 QTc: 480 Interpretive Statements SINUS TACHYCARDIA INCOMPLETE RIGHT BUNDLE BRANCH BLOCK BORDERLINE ST-T WAVE ABNORMALITY- ANTERIOR LEADS BASELINE ARTIFACT- I, II, III, AVL ABNORMAL ECG Electronically Signed On 05-16-2021 17:10:46 CDT by Fabrice Barker D.O.
--- NOTE | 2021-05-16 09:15 | ED.CHESTPAIN ---
HPI - Chest Pain General Chief Complaint: Chest Pain Stated Complaint: chest pain Time Seen by Provider: 05/16/21 09:15 Source: patient Mode of arrival: ambulatory Limitations: no limitations History of Present Illness HPI narrative: 40-year-old woman with a history of factor 5 Leiden and GERD comes in today complaining of chest pressure, shortness of breath, and rapid heart rate that woke her up a little after 7:00 a.m. this morning. She states that her rapid heart rate lasted for approximately 1 hour. She felt nauseated but has had no vomiting. She states that she has had some recent mild cough as well as a episode of loose stools this morning. She has had no fevers, vomiting, abdominal pain, or syncope. She states that the pressure now is across her upper back and radiates to her left arm, but not below the elbow. She states that she had a stress test 1 year ago with only minor abnormalities. MD complaint: chest discomfort ( tightness) Onset (ago): hour(s) (2) Timing of current episode: constant and still present Prior episodes: Yes Onset: during rest and awoke with symptoms Pain location: substernal Pain radiation: left arm and back Severity: moderate Quality: tightness Relieving factors: nothing Exacerbating factors: nothing Associated symptoms: nausea, dyspnea and palpitations ( rapid heart rate) Treatment prior to arrival: none Risk Factors Thoracic aortic dissection risk factors: none Pulmonary embolism risk factors: clotting disorder Related Data On Oral Contraceptives: No Home Medications Medication Instructions Recorded Confirmed omeprazole 40 mg PO DAILY 12/03/19 05/16/21 Allergies Allergy/AdvReac Type Severity Reaction Status Date / Time Penicillins Allergy Unknown Hives Verified 01/19/21 15:05 adhesive tape Allergy BUMPS/ITCHY Verified 01/19/21 15:05 amoxicillin Allergy Hives Verified 01/19/21 15:05 Review of Systems Review of Systems: All systems reviewed & are unremarkable except as noted in HPI and below Constitutional: Constitutional: Denies chills and Denies fever(s) Eyes: Eyes: Denies change in vision and Denies photophobia ENT: Denies nasal congestion and Denies sore throat Cardiovascular: Cardiovascular: Reports as per HPI, Reports chest pain, Reports rapid heart rate and Reports radiating jaw, neck or arm pain Respiratory: Respiratory: Denies cough, Reports dyspnea and Denies wheezing Gastrointestinal: Gastrointestinal: Reports as per HPI, Denies abdominal pain, Reports diarrhea and Denies vomiting Genitourinary: Genitourinary: Denies nocturia and Denies dysuria Musculoskeletal: Musculoskeletal: Reports back pain, Denies arthralgias and Denies joint swelling Integumentary/Breasts: Skin/Breast: Denies pruritus, Denies erythema and Denies rash Neurologic: Denies confusion, Denies vertigo, Denies dizziness, Denies syncope, Denies focal weakness and Denies numbness Hematologic/Lymphatic: Hematologic/Lymphatic: Denies easy bleeding and Denies easy bruising Allergic/Immunologic: Allergic/Immunologic: Denies lip swelling, Denies throat swelling and Denies tongue swelling [facility] Past Medical History Medical History (Updated 05/16/21 @ 13:07 by Thaddeus Lewis MD) Erythema nodosum Factor 5 Leiden mutation, heterozygous GERD (gastroesophageal reflux disease) Obesity Surgical History Surgical History Ankle fracture H/O tubal ligation Hx of cholecystectomy Family History Family History Father Hypertension Family history of elevated blood lipids Sibling Hypertension Mother Family history of rheumatoid arthritis Family history of chronic obstructive pulmonary disease Social History Social History Smoking status: Former smoker Tobacco type: cigarettes Second hand tobacco smoke exposure: No Alcohol
[2021-05-16 09:20] VITALS: BP 156/82; PULSE 110; RESP 22; TEMP 36.3; O2SAT 98
[2021-05-16] MEDS: ASPIRIN 81 MG CHEWABLE TABLET 324 MG PO (09:22)
[2021-05-16] MEDS: NITROGLYCERIN SL 0.4 MG TABLET (09:25)
[2021-05-16] MEDS: PANTOPRAZOLE SODIUM IV 40 MG VIAL IV PUSH (09:36)
[2021-05-16 09:42] LABS: Basophils Absolute Auto 0.05 K/mm3 (0.00-0.10); Basophils Percent Auto 0.6 % (0.0-1.0); Eosinophils Absolute Auto 0.17 K/mm3 (0.02-0.50); Eosinophils Percent Auto 1.9 % (1.0-6.0); Hematocrit 43.6 % (35.0-49.0); Hemoglobin 14.2 g/dL (12.0-15.0); Immature Granulocyte Absolute 0.04 K/mm3 (0.00-0.00); Immature Granulocyte Percent A 0.5 % (0.0-0.0); Lymphocytes Absolute Auto 2.49 K/mm3 (1.10-4.50); Lymphocytes Percent Auto 28.1 % (18.0-42.0); Mean Corpuscular HGB Conc 32.6 g/dL (32.0-36.0); Mean Corpuscular Volume 85.8 fL (78.0-102.0); Mean Platelet Volume 11.5 fl (9.2-11.8); Monocytes Absolute Auto 0.45 K/mm3 (0.10-0.90); Monocytes Percent Auto 5.1 % (2.0-11.0); Neutrophils Absolute Auto 5.7 K/mm3 (1.7-7.2); Neutrophils Percent Auto 63.8 % (50.0-70.0); Platelet Count Result 277 K/mm3 (150-420); Red Blood Count 5.08 M/mm3 (4.20-5.40); Red Cell Distribution Width 14.1 % (11.6-14.4); White Blood Count 8.9 K/mm3 (4.8-10.8)
[2021-05-16 09:54] LABS: D Dimer 0.44 mg/L (0.19-0.50)
[2021-05-16 10:01] LABS: Alanine Aminotransferase 28 U/L (14-59); Albumin Level 3.5 g/dL (3.4-5.0); Alkaline Phosphatase 105 U/L (46-116); Anion Gap 13 mmol/L (8-16); Aspartate Amino Transferase 12 U/L (15-37); Bilirubin,Total 0.2 mg/dL (0.00-1.00); Blood Urea Nitrogen 13 mg/dL (7-18); Calcium 8.8 mg/dL (8.5-10.1); Carbon Dioxide 25 mmol/L (21-32); Chloride 108 mmol/L (98-108); Estimated CRCL calculation 85 ml/min; Estimated Glomerular Filt Rate > 60; Glucose 129 mg/dL (70-99); NT Pro B Type Natriuretic Pept 68 pg/mL (0-125); Osmolality Calculated 304 mOsm/kg (285-295); Potassium 4.3 mmol/L (3.5-5.1); Sodium 146 mmol/L (136-145); Total Protein 7.3 g/dL (6.4-8.2)
[2021-05-16 10:04] LABS: Troponin I < 4.0 ng/L (0.00-60.4)
[2021-05-16 11:12] VITALS: BP 141/88; PULSE 102; RESP 18; O2SAT 96
[2021-05-16 11:28] LABS: Add Urine Microscopic? YES; Appearance Urine Clear (Clear); Bilirubin Urine Negative (Negative); Blood Urine 1+ (Negative); Color Urine Light Yellow (Yellow); Glucose Urine UA Negative (Negative); Ketones Urine Negative (Negative); Leukocyte Esterase Ur Negative LEU/UL (Negative); Nitrate Urine Positive (Negative); Protein Urine Negative (Negative); Urobilinogen Urine 0.2 mg/dL (0.2-1.0)
[2021-05-16 11:43] LABS: RBC Urine 0-2 /hpf (0-2); Squamous Epithelial Cell Urine Moderate /hpf (Few); WBC Urine 0-3 /hpf (0-3)
[2021-05-16 11:44] LABS: Bacteria Urine Trace /hpf
[2021-05-16 13:27] LABS: Troponin I < 4.0 ng/L (0.00-60.4)
[2021-05-16 13:39] VITALS: BP 123/77; PULSE 81; RESP 20; TEMP 36.6; O2SAT 96
== END 2021-05-16 13:44 | disposition home or self-care (01) ==
PROVIDERS: Emergency Provider Emergency Medicine
DX: R07.89 Other chest pain (principal); N30.00 Acute cystitis without hematuria
CPT/HCPCS: 36415; 71045; 71275; 80053; 81001; 83880; 84484; 85025; 85380; 87086; 87088; 93005; 96374; 99283; 99284; A9270; C9113; Q9967

== ENCOUNTER 2021-05-20 09:42 | Outpatient (CLI) | payer OTHER, SELFPAY ==
[2021-05-20 11:00] LABS: Cholesterol 264 mg/dL (0-200); HDL Direct 48 mg/dL (40-60); LDL Cholesterol Calculated 178 mg/dL (<130); Triglycerides 188 mg/dL (0-150)
== END 2021-05-20 09:43 | disposition home or self-care (01) ==
LOC: CHSLAB 09:43
PROVIDERS: PCP Internal Medicine; Visit Provider Internal Medicine Cardiovascular Disease
DX: E66.9 Obesity, unspecified (principal)
CPT/HCPCS: 36415; 80061

== ENCOUNTER 2021-05-20 20:47 | Emergency (ER) | payer OTHER, SELFPAY ==
--- NOTE | ~2021-05-20 | XR_ITS ---
EXAMINATION: XR chest 1V portable INDICATION: Chest pain TECHNIQUE: Portable AP chest at 2129 hours COMPARISON: 05/16/2021 FINDINGS: The lungs are free of acute opacities. There is no pleural effusion or pneumothorax. The ca rdiomediastinal silhouette is normal. IMPRESSION: 1. No acute cardiopulmonary abnormality. Reviewed, dictated and finalized at location A.
[2021-05-20 20:50] VITALS: BP 156/91; PULSE 107; RESP 20; TEMP 36.9; O2SAT 100
[2021-05-20 21:00] VITALS: PULSE 107
--- NOTE | 2021-05-20 21:09 | ECG_ITS ---
Measurements Intervals [place] Rate: 98 P: 45 AL: 153 QRS: 12 QRSD: 92 T: 64 QT: 368 QTc: 471 Interpretive Statements SINUS RHYTHM DELAYED PRECORDIAL R/S TRANSITION BORDERLINE ST-T WAVE ABNORMALITY- ANTEROLAT/HIGH LAT LEADS BASELINE ARTIFACT- I, II, III, AVR, AVL, AVF BORDERLINE ECG Electronically Signed On 05-21-2021 6:48:12 CDT by Fabrice Barker D.O.
[2021-05-20] MEDS: ASPIRIN 81 MG CHEWABLE TABLET 324 MG PO (21:19)
[2021-05-20 21:24] LABS: Basophils Absolute Auto 0.05 K/mm3 (0.00-0.10); Basophils Percent Auto 0.5 % (0.0-1.0); Eosinophils Absolute Auto 0.14 K/mm3 (0.02-0.50); Eosinophils Percent Auto 1.5 % (1.0-6.0); Hematocrit 43.7 % (35.0-49.0); Hemoglobin 13.7 g/dL (12.0-15.0); Immature Granulocyte Absolute 0.04 K/mm3 (0.00-0.00); Immature Granulocyte Percent A 0.4 % (0.0-0.0); Lymphocytes Absolute Auto 3.06 K/mm3 (1.10-4.50); Lymphocytes Percent Auto 32.2 % (18.0-42.0); Mean Corpuscular HGB Conc 31.4 g/dL (32.0-36.0); Mean Corpuscular Hemoglobin 27.2 pg (27.0-31.0); Mean Corpuscular Volume 86.9 fL (78.0-102.0); Mean Platelet Volume 11.8 fl (9.2-11.8); Monocytes Absolute Auto 0.52 K/mm3 (0.10-0.90); Monocytes Percent Auto 5.5 % (2.0-11.0); Neutrophils Absolute Auto 5.7 K/mm3 (1.7-7.2); Neutrophils Percent Auto 59.9 % (50.0-70.0); Platelet Count Result 255 K/mm3 (150-420); Red Blood Count 5.03 M/mm3 (4.20-5.40); Red Cell Distribution Width 14.1 % (11.6-14.4); White Blood Count 9.5 K/mm3 (4.8-10.8)
--- NOTE | 2021-05-20 21:34 | ED.GENADULT ---
HPI - General Adult General Chief complaint: Chest Pain Stated complaint: chest pain, trouble breathing, feels hot, Source: patient Mode of arrival: ambulatory Limitations: no limitations History of Present Illness HPI narrative: Kimberlyn is a 40F with a PMH of factor 5 Leiden, obesity, GERD, and HLD that presented to the ED with chest discomfort. It is the same discomfort she had a few days ago. It is hard for her do describe. her best description is a pressure that goes to the left arm and right shoulder. She doesn't admit nausea but says she doesn't feel right. She has not vomited. No syncope or near syncope. The pain only comes when she is sitting and it is not worse with activity. She admits she is anxious and this makes the feeling worse. Related Data Home Medications Medication Instructions Recorded Confirmed omeprazole 40 mg PO DAILY 12/03/19 05/20/21 Allergies Allergy/AdvReac Type Severity Reaction Status Date / Time Penicillins Allergy Unknown Hives Verified 05/18/21 13:04 adhesive tape Allergy BUMPS/ITCHY Verified 05/18/21 13:04 amoxicillin Allergy Hives Verified 05/18/21 13:04 Review of Systems Constitutional: Constitutional: Reports no additional constitutional complaints Eyes: Eyes: Reports no additional eye complaints ENT: Reports system reviewed and no additional complaints, except as documented Cardiovascular: Cardiovascular: Reports as per HPI Respiratory: Respiratory: Reports no additional respiratory complaints Gastrointestinal: Gastrointestinal: Reports no additional gastrointestinal complaints Genitourinary: Genitourinary: Reports no additional female genitourinary complaints Musculoskeletal: Musculoskeletal: Reports no additional musculoskeletal complaints Integumentary/Breasts: Skin/Breast: Reports system reviewed and no additional complaints, except as docu Neurologic: Reports system reviewed and no additional complaints, except as documented Psychiatric: Psychiatric: Reports anxiety Endocrine: Endocrine: Reports no additional endocrine complaints Hematologic/Lymphatic: Hematologic/Lymphatic: Reports no additional hematologic/lymphatic complaints Allergic/Immunologic: Allergic/Immunologic: Reports no additional allergic/immunologic complaints [facility] Past Medical History Medical History Erythema nodosum Factor 5 Leiden mutation, heterozygous GERD (gastroesophageal reflux disease) Obesity Surgical History Surgical History Ankle fracture H/O tubal ligation Hx of cholecystectomy Family History Family History Father Hypertension Family history of elevated blood lipids Sibling Hypertension Mother Family history of rheumatoid arthritis Family history of chronic obstructive pulmonary disease Social History Social History Smoking status: Former smoker Tobacco type: cigarettes Second hand tobacco smoke exposure: No Alcohol intake: former Alcohol use details: occasion Substance use: never Substance use type: does not use Gender identity (if verbalized by the patient): Female Spiritual care concerns: No Exam Const: General: no acute distress and alert Orientation/consciousness: patient oriented x3 Limitations: No altered mental status HENMT: Head: normal to inspection Other: atrauamtic Eyes: Conjunctivae: conjunctivae normal Pupils: Equal, round and reactive pupils present Neck: Neck: normal visual inspection Chest: Chest palpation & inspection: normal inspection of the chest Resp: Effort & Inspection: normal respiratory effort Auscultation: clear to auscultation bilaterally Cardio: Rate: regular rate Rhythm: regular rhythm Heart sounds: no murmurs GI: Inspection: non-distended GI Palp: Yes Soft to palpation,
[2021-05-20 21:46] LABS: Alanine Aminotransferase 33 U/L (14-59); Albumin Level 3.7 g/dL (3.4-5.0); Alkaline Phosphatase 101 U/L (46-116); Anion Gap 14 mmol/L (8-16); Aspartate Amino Transferase 15 U/L (15-37); Bilirubin,Total 0.2 mg/dL (0.00-1.00); Blood Urea Nitrogen 18 mg/dL (7-18); Calcium 8.6 mg/dL (8.5-10.1); Carbon Dioxide 25 mmol/L (21-32); Chloride 103 mmol/L (98-108); Estimated Glomerular Filt Rate 44; Glucose 141 mg/dL (70-99); NT Pro B Type Natriuretic Pept 34 pg/mL (0-125); Osmolality Calculated 297 mOsm/kg (285-295); Potassium 3.9 mmol/L (3.5-5.1); Sodium 142 mmol/L (136-145); Total Protein 7.6 g/dL (6.4-8.2)
[2021-05-20 21:47] LABS: Troponin I < 4.0 ng/L (0.00-60.4)
[2021-05-20 21:55] LABS: D Dimer 0.36 mg/L (0.19-0.50)
[2021-05-20] MEDS: LORazepam INJ (*CRX) 2 MG/ML VIAL 1 MG IV PUSH (22:23)
[2021-05-20 22:27] VITALS: BP 149/81; PULSE 90; RESP 20; TEMP 36.9; O2SAT 95
[2021-05-20 23:08] VITALS: BP 125/75; PULSE 86; RESP 20; TEMP 36.9; O2SAT 96
== END 2021-05-20 23:10 | disposition home or self-care (01) ==
PROVIDERS: Emergency Provider Family Medicine; PCP Internal Medicine
DX: F41.9 Anxiety disorder, unspecified (principal); R07.9 Chest pain, unspecified; N39.0 Urinary tract infection, site not specified
CPT/HCPCS: 36415; 71045; 80053; 83880; 84484; 85025; 85380; 93005; 96374; 99283; 99284; A9270; J2060

== ENCOUNTER 2022-02-05 21:45 | Emergency (ER) | payer OTHER, SELFPAY ==
--- NOTE | ~2022-02-05 | XR_ITS ---
XR chest 2V DATE: 02/05/2022 22:16 INDICATION: Dyspnea. Chest pressure. TECHNIQUE: PA and lateral views COMPARISON: 05/20/2021 portable AP chest FINDINGS: Normal heart size. No hilar or mediastinal enlargement. No pulmonary infiltrate or consolid ation, pleural effusion or pulmonary vascular congestion or pneumothorax. Included skeletal structures are unremarkable. Status post cholecystectomy. IMPRESSION: No active cardiopulmonary disease Status post cholecystectomy Reviewed, dictated and finalized at location A.
--- NOTE | 2022-02-05 21:54 | ED.SOB ---
HPI - SOB/Dyspnea General Chief Complaint: Anxiety Stated Complaint: NUMBNESS IN CHEEK,PRESSURE/TINGLING IN CHEST,SOB Time Seen by Provider: 02/05/22 21:54 Source: patient Mode of arrival: ambulatory Limitations: no limitations History of Present Illness HPI Narrative: patient states she felt like she had some numbness on left side of her face and then that resolved. And then the more she thought about it she began having some rapid beating in her chest with some shortness of breath. She had mild nausea. She has a history of multiple evaluations for chest pain. She has seen a air quality specialist where she had a CTA of the heart which showed some evidence of coronary artery disease. She said that in the last 2 hours has had multiple various symptoms with rapid heart, then chest pressure, then tingling in her chest, then shortness of breath. MD elicited complaint: shortness of breath Onset (ago): hour(s) (2) Context: anxiety Timing: constant Severity: moderate Exacerbating factors: stress Relieving factors: nothing Associated symptoms: chest pain (pressure) Treatment prior to arrival: none Related Data Home oxygen amount: none Home Medications Medication Instructions Recorded Confirmed omeprazole 40 mg PO DAILY 12/03/19 02/05/22 buspirone 10 mg tablet 10 mg PO BID 08/31/21 02/05/22 aspirin 81 mg PO DAILY 02/05/22 02/05/22 duloxetine 30 mg PO DAILY 02/05/22 02/05/22 Allergies Allergy/AdvReac Type Severity Reaction Status Date / Time Penicillins Allergy Unknown Hives Verified 02/05/22 22:03 adhesive tape Allergy BUMPS/ITCHY Verified 02/05/22 22:03 amoxicillin Allergy Hives Verified 02/05/22 22:03 Review of Systems Review of Systems: All systems reviewed & are unremarkable except as noted in HPI and below Constitutional: Constitutional: Denies chills and Denies fever(s) Cardiovascular: Cardiovascular: Reports as per HPI Respiratory: Respiratory: Reports as per HPI Gastrointestinal: Gastrointestinal: Denies diarrhea, Reports nausea and Denies vomiting PMFSH Past Medical History Medical History Erythema nodosum Factor 5 Leiden mutation, heterozygous GERD (gastroesophageal reflux disease) Obesity Surgical History Surgical History Ankle fracture H/O tubal ligation Hx of cholecystectomy Family History Family History Father Hypertension Family history of elevated blood lipids Sibling Hypertension Mother Family history of rheumatoid arthritis Family history of chronic obstructive pulmonary disease Social History Social History Smoking status: Former smoker Tobacco type: cigarettes Second hand tobacco smoke exposure: No Alcohol intake: former Alcohol use details: occasion Substance use: never Substance use type: does not use Gender identity (if verbalized by the patient): Female Sexual Orientation (if Verbalized by the Patient): Straight or Heterosexual Spiritual care concerns: No Exam Const: General: healthy appearing, no acute distress and alert Nutritional Appearance: well nourished and obese morbidly obese Orientation/consciousness: patient oriented x3 HENMT: Head: normal to inspection Ears: external ears normal Eyes: Conjunctivae: conjunctivae normal Pupils: Equal, round and reactive pupils present EOM: EOMs intact bilaterally Neck: Neck: normal visual inspection Resp: Effort & Inspection: normal respiratory effort Auscultation: clear to auscultation bilaterally Cardio: Rate: regular rate Rhythm: regular rhythm GI: GI Palp: Yes Soft to palpation and No Tenderness to palpation present (GI) Auscultation: normal bowel sounds Back/Spine/Pelvis: Cervical Spine: cervical ROM normal Thoracic/Lumbar Spine: thoraco-lumbar ROM normal Skin: General skin exam:
--- NOTE | 2022-02-05 21:55 | ECG_ITS ---
Measurements Intervals [place] Rate: 107 P: 38 DC: 152 QRS: 6 QRSD: 89 T: 42 QT: 345 QTc: 462 Interpretive Statements SINUS TACHYCARDIA LOW QRS VOLTAGE IN PRECORDIAL LEADS [QRS DEFLECTION < 1.0 mV IN CHEST LEADS] NONSPECIFIC ST & T-WAVE ABNORMALITY ABNORMAL ECG COMPARED TO ECG 05/20/2021 21:03:42 SINUS TACHYCARDIA NOW PRESENT Electronically Signed On 02-06-2022 11:39:21 CDT by Dallas Shaw M.D.
[2022-02-05 21:58] VITALS: BP 160/98; PULSE 98; RESP 20; TEMP 36.7; O2SAT 98
[2022-02-05 22:16] LABS: Basophils Absolute Auto 0.08 K/mm3 (0.00-0.10); Basophils Percent Auto 0.5 % (0.0-1.0); Eosinophils Absolute Auto 0.19 K/mm3 (0.02-0.50); Eosinophils Percent Auto 1.3 % (1.0-6.0); Hematocrit 43.3 % (35.0-49.0); Immature Granulocyte Absolute 0.07 K/mm3 (0.00-0.00); Immature Granulocyte Percent A 0.5 % (0.0-0.0); Lymphocytes Absolute Auto 3.88 K/mm3 (1.10-4.50); Lymphocytes Percent Auto 26.5 % (18.0-42.0); Mean Corpuscular HGB Conc 32.3 g/dL (32.0-36.0); Mean Corpuscular Hemoglobin 28.1 pg (27.0-31.0); Mean Corpuscular Volume 86.8 fL (78.0-102.0); Mean Platelet Volume 11.1 fl (9.2-11.8); Monocytes Absolute Auto 0.87 K/mm3 (0.10-0.90); Monocytes Percent Auto 5.9 % (2.0-11.0); Neutrophils Absolute Auto 9.5 K/mm3 (1.7-7.2); Neutrophils Percent Auto 65.3 % (50.0-70.0); Platelet Count Result 263 K/mm3 (150-420); Red Blood Count 4.99 M/mm3 (4.20-5.40); Red Cell Distribution Width 13.9 % (11.6-14.4); White Blood Count 14.6 K/mm3 (4.8-10.8)
[2022-02-05 22:27] LABS: INR 0.9; Prothrombin Time 9.8 Seconds (9.50-12.10)
[2022-02-05 22:32] LABS: Alanine Aminotransferase 44 U/L (14-59); Albumin Level 3.7 g/dL (3.4-5.0); Alkaline Phosphatase 119 U/L (46-116); Anion Gap 11 mmol/L (8-16); Aspartate Amino Transferase 23 U/L (15-37); Bilirubin,Total 0.5 mg/dL (0.00-1.00); Blood Urea Nitrogen 15 mg/dL (7-18); Calcium 8.7 mg/dL (8.5-10.1); Carbon Dioxide 26 mmol/L (21-32); Chloride 100 mmol/L (98-108); Estimated Glomerular Filt Rate > 60; Glucose 139 mg/dL (70-99); Magnesium 1.9 mg/dL (1.8-2.4); Osmolality Calculated 286 mOsm/kg (285-295); Potassium 3.7 mmol/L (3.5-5.1); Sodium 137 mmol/L (136-145); Total Protein 7.8 g/dL (6.4-8.2); Troponin I 4.4 ng/L (0.00-60.4)
[2022-02-05 22:56] VITALS: BP 154/76; PULSE 102; RESP 16; O2SAT 96
[2022-02-06] VITALS: BP 149/92; PULSE 99; RESP 19; O2SAT 96
[2022-02-06 00:55] LABS: Troponin I 4.6 ng/L (0.00-60.4)
[2022-02-06 01:19] VITALS: BP 169/103; PULSE 93; RESP 18; O2SAT 96
== END 2022-02-06 01:22 | disposition home or self-care (01) ==
PROVIDERS: Emergency Provider Emergency Medicine; PCP Internal Medicine
DX: R07.89 Other chest pain (principal); I10 Essential (primary) hypertension
CPT/HCPCS: 36415; 71046; 80053; 83735; 84484; 85025; 85610; 93005; 99284

== ENCOUNTER 2023-04-25 19:54 | Emergency (ER) | payer OTHER, SELFPAY ==
[2023-04-25 19:55] VITALS: BP 159/77; PULSE 98; RESP 20; TEMP 36.8; O2SAT 96
--- NOTE | 2023-04-25 20:09 | ED.GENADULT ---
HPI - General Adult General Chief complaint: Dizziness Stated complaint: Dizziness Time Seen by Provider: 04/25/23 19:56 History of Present Illness HPI narrative: Kimberlyn is a 42F with a PMH of dyslipidemia, CAD, factor V leiden, and GERD that presented to the ED with 2 weeks of sinus pain and congestion. Tonight she became worried as she noticed some bumps on the posterior side of her right neck. She did have one episode where she stood up to fast and felt lightheaded but did not pass out. Since then there has been no lightheadedness, CP, dyspnea or nausea. Related Data Home Medications Medication Instructions Recorded Confirmed omeprazole 40 mg capsule,delayed 40 mg PO DAILY 12/03/19 04/25/23 release duloxetine 30 mg capsule,delayed 30 mg PO DAILY 02/05/22 04/25/23 release aspirin 81 mg chewable tablet 81 mg PO DAILY 04/25/23 04/25/23 Allergies Allergy/AdvReac Type Severity Reaction Status Date / Time Penicillins Allergy Unknown Hives Verified 04/25/23 19:59 adhesive tape Allergy BUMPS/ITCHY Verified 04/25/23 19:59 amoxicillin Allergy Hives Verified 04/25/23 19:59 Review of Systems Review of Systems: All systems reviewed & are unremarkable except as noted in HPI and below PMFSH Past Medical History Medical History Erythema nodosum Factor 5 Leiden mutation, heterozygous GERD (gastroesophageal reflux disease) Obesity Surgical History Surgical History Ankle fracture H/O tubal ligation Hx of cholecystectomy Family History Family History Father Hypertension Family history of elevated blood lipids Sibling Hypertension Mother Family history of rheumatoid arthritis Family history of chronic obstructive pulmonary disease Social History Social History Smoking status: Former smoker Tobacco type: cigarettes Second hand tobacco smoke exposure: No Alcohol intake: former Alcohol use details: occasion Substance use: never Substance use type: does not use Living arrangements: with family Occupation/Education: occupation Gender identity (if verbalized by the patient): Female Sexual Orientation (if Verbalized by the Patient): Straight or Heterosexual Spiritual care concerns: No Exam Const: General: healthy appearing and no acute distress Nutritional Appearance: well nourished Orientation/consciousness: patient oriented x3 HENMT: Head: normal to inspection Ears: external ears normal Other: pain in the sinuses with leaning foreword. Normal oral mucosa. TM wnl bilaterally Eyes: Conjunctivae: conjunctivae normal Pupils: Equal, round and reactive pupils present Neck: Neck: normal visual inspection Other: right cervical lymphadenopathy Chest: Chest palpation & inspection: normal inspection of the chest Resp: Effort & Inspection: normal respiratory effort Auscultation: clear to auscultation bilaterally Cardio: Rate: regular rate Rhythm: regular rhythm Skin: General skin exam: normal color Neuro: General: patient oriented x3 and moves all extremities Extrem: General: normal to inspection Psych: Mental Status: mental status grossly normal Course Course Emergency Course: Given dose of doxycycline as she is penicillin allergic Vital Signs Vital signs: Vital Signs Temperature 98.2 F 04/25/23 19:55 Pulse Rate 98 04/25/23 19:55 Respiratory Rate 20 04/25/23 19:55 Blood Pressure 159/77 H 04/25/23 19:55 Pulse Oximetry 96 04/25/23 19:55 Oxygen Delivery Room Air 04/25/23 19:55 Temperature 98.2 F 04/25/23 19:55 Pulse Rate 98 04/25/23 19:55 Respiratory Rate 20 04/25/23 19:55 Blood Pressure 159/77 H 04/25/23 19:55 Pulse Oximetry 96 04/25/23 19:55 Oxygen Delivery Room Air 04/25/23 19:55
[2023-04-25] MEDS: DOXYCYCLINE HYCLATE 100 MG TABLET PO (20:11)
[2023-04-25 20:23] VITALS: BP 135/86; PULSE 99; RESP 16; O2SAT 96
== END 2023-04-25 20:24 | disposition home or self-care (01) ==
PROVIDERS: Emergency Provider Family Medicine; PCP Internal Medicine
DX: J32.9 Chronic sinusitis, unspecified (principal); E78.5 Hyperlipidemia, unspecified; I25.10 Atherosclerotic heart disease of native coronary artery without angina pectoris; Z79.82 Long term (current) use of aspirin; Z87.891 Personal history of nicotine dependence
CPT/HCPCS: 99283; A9270

== ENCOUNTER 2023-06-06 14:40 | Outpatient (CLI) | payer OTHER, SELFPAY ==
--- NOTE | 2023-06-06 14:46 | ECHO_ITS ---
Patient Info Name: Kimberlyn Oviedo Age: 42 years : 1980 Gender: Female Ht: 62 in Wt: 293 lbs BSA: 2.50 m2 HR: 90 bpm BP: 153 / 103 mmHg Heart Rhythm: Sinus Rhythm Technical Quality: Fair Exam Date: 06/06/2023 2:36 PM Exam Location: [facility] Patient Status: Outpatient Admit Date: 06/06/2023 Staff Ordering Physician: Isaiah Esteves MD Teleradiologist: rBice Scott RDCS Attending Provider: Isaiah Esteves MD Exam Type: CA echo dop color flow w con Study Info Indications - abnormal EKG/HYpertension Complete two-dimensional, color flow and Doppler transthoracic echocardiogram is performed with contrast to opacify the left ventricle and to improve the deliniation of the left ventricle endocardial borders. History/Risk Factors Hypertension: No Dyslipidemia: No Congenital Heart Disease (CHD): No Peripheral Arterial Disease (PAD): No Myocardial Infarction (MS): No Chronic Lung Disease: No Obesity: Yes Renal Disease: No Coronary Artery Disease (CAD) No Congestive Heart Failure (CHF): No Cardiomyopathy/LV Systolic Dysfunction: No Date of Last Tobacco Use: 04/03/2020 Diabetes Mellitus: No COPD: No Tobacco Use: Current - Every Day If Any Current, Tobacco Type: Cigarettes If Current - Every Day \T\ Cigarettes, Amount: Heavy Tobacco Use (>=10/day) Cerebrovascular Disease: No Deep Vein Thrombosis (DVT): None Dialysis: None Frailty Scale (CSHA): 2: Well Cardiac Arrest: No Prior Interventions Pacemaker: No PCI: No CABG: No Valve Surgery: No ICD: No PV Intervention: None Heart Transplant: No Summary 1. Left ventricular chamber dimension is normal. 2. Definity contrast administered improved wall motion interpretation. 3. Left ventricular systolic function is normal, estimated at 60-65%. 4. There is mild concentric increased left ventricular wall thickness. 5. The left ventricular diastolic function is abnormal. 6. E/e' 11 is mildly elevated. 7. No pulmonary hypertension, estimated pulmonary arterial systolic pressure is 15 mmHg. Recommendations * Smoking cessation counseling is recommended for this patient. Left Ventricle E/e' 11 is mildly elevated. Definity contrast administered improved wall motion interpretation. Left ventricular chamber dimension is normal. Left ventricular systolic function is normal, estimated at 60-65%. There is mild concentric increased left ventricular wall thickness. The left ventricular diastolic function is abnormal. Right Ventricle Right ventricular systolic function is normal and with normal TAPSE 2.4 cm. Right ventricular chamber dimension is normal. Left Atria Left atrial chamber dimension is normal. Right Atria Right atrial chamber dimension is normal. Aortic Valve The aortic valve is trileaflet. There is no aortic valve stenosis. There is no aortic valve regurgitation. Pulmonic Valve There is no pulmonic regurgitation. Mitral Valve There is no mitral valve stenosis. There is no mitral valve regurgitation. Tricuspid Valve There is no tricuspid valve regurgitation. No pulmonary hypertension, estimated pulmonary arterial systolic pressure is 15 mmHg. Pericardium/Pleural There is no pericardial effusion. Inferior Vena Cava Normal inferior vena cava with >50% collapse upon inspiration consistent with normal right atrial pressure, 5 mmHg. Aorta The aortic root size at the sinus of Valsalva is normal. Left Ventricular Outflow Tract
== END 2023-06-06 14:41 | disposition home or self-care (01) ==
LOC: CHSIMG 14:42
PROVIDERS: PCP Internal Medicine; Visit Provider Internal Medicine
DX: R94.31 Abnormal electrocardiogram [ECG] [EKG] (principal); I10 Essential (primary) hypertension; R93.1 Abnormal findings on diagnostic imaging of heart and coronary circulation
CPT/HCPCS: C8929

== ENCOUNTER 2024-03-11 19:13 | Emergency (ER) | payer SELFPAY ==
--- NOTE | ~2024-03-11 | CT_ITS ---
Clinical Indication: Wheezing, shortness of breath CT Scan of the Chest with Contrast: Technique: Contiguous sections were acquired throughout the chest after intravenous administration of 100 cc of Omnipaque 350. Dose reduction technique was used on this scan by utilizing automated expos ure control and iterative reconstruction technique. The dose-length product (DLP) was 1021.50 mGy-cm. COMPARISON: 05/16/2021 Findings: There is no evidence of any significant mediastinal, hilar or axillary lymphadenopathy. There is no f illing defect in the pulmonary arterial tree to suggest pulmonary embolus. There is no evidence of ao rtic dissection or aneurysm. There is no evidence of pleural or pericardial effusion. The lungs are clear. No pulmonary nodules or infiltrates are noted. Images through the upper abdomen reveal diffuse hepatic steatosis. Impression: No evidence of pulmonary embolus, aortic dissection, or aortic aneurysm. Clear lungs. Reviewed, dictated and finalized at [facility]. Impression: No evidence of pulmonary embolus, aortic dissection, or aortic aneurysm. Clear lungs.
--- NOTE | ~2024-03-11 | XR_ITS ---
EXAM: XR foot RT min 3V DATE: 03/11/2024 20:40 HISTORY: FOOT SWELLING X 2 WEEKS. DROPPED BOTTLE ON FOOT RECENTLY. . COMPARISON: 06/27/2014. FINDINGS: Normal mineralization. No fracture or dislocation. No lytic or blastic lesion. Joint space s are mild degenerative change at the first MTP joint and multiple midfoot joints. Achilles enthesopa thy. No erosion or periosteal change. Dorsolateral soft tissue swelling. IMPRESSION: No acute osseous finding in the right foot. Reviewed, dictated and finalized at location K.
--- NOTE | ~2024-03-11 | XR_ITS ---
EXAMINATION: XR chest 2V Exam Date/Time: 03/11/2024 20:23 CDT HISTORY: cough, wheeze X 2 DAYS. Comparison: 02/05/2022. RESULT: Lines, tubes, and devices: Cholecystectomy clips. Lungs and pleura: Clear. Cardiomediastinal silhouette: Stable. Other: No acute osseous or upper abdominal finding. IMPRESSION: No acute cardiopulmonary process. Reviewed, dictated and finalized at location K.
[2024-03-11 19:18] VITALS: BP 165/105; PULSE 104; RESP 18; O2SAT 97
[2024-03-11 19:21] VITALS: O2SAT 97
--- NOTE | 2024-03-11 19:30 | ED.GENADULT ---
HPI - General Adult General Chief complaint: Unspecified Stated complaint: Swollen Legs/Weakness Time Seen by Provider: 03/11/24 19:29 Source: patient Mode of arrival: ambulatory Limitations: no limitations History of Present Illness HPI narrative: 43-year-old white female complain of lower leg swelling from her knees to her feet for last 2 and half weeks. She says she sits a lot she has gained 60 lb in the last year. She also had a little bit of wheezing and shortness of breath earlier but she thought that might be related to her anxiety. She has no wheezing or problems breathing now. She also complained of a knot on the right side of her foot top. She denies any chest pain. She has some lower back pain 2 days ago but did not take anything for the pain. She has had a cough little bit but she thinks that is just from her allergies. Has had a stuffy nose. She denies any problems voiding or stooling walking talking seeing or hearing rash or itching bleeding or bruising dizziness or lightheadedness. She dropped a Gatorade bottle on her left foot causing a bruise. She has had a knot on her foot for about a week. Denies any other complaints . Denies any other complaints. Past medical history GERD, she sees heart doctor for tight muscle in her heart. She has factor 5 Leiden deficiency. Her PCP is Dr. Gauthier. She has a history of erythema nodosa hyperlipidemia. No history of hypertension lung disease or venous thromboembolism. Social history she does not smoke drink or do any drugs. Related Data Home Medications Medication Instructions Recorded Confirmed omeprazole 40 mg capsule,delayed 40 mg PO DAILY 12/03/19 03/11/24 release aspirin 81 mg chewable tablet 81 mg PO DAILY 04/25/23 03/11/24 Allergies Allergy/AdvReac Type Severity Reaction Status Date / Time Penicillins Allergy Unknown Hives Verified 06/08/23 10:10 adhesive tape Allergy BUMPS/ITCHY Verified 06/08/23 10:10 amoxicillin Allergy Hives Verified 06/08/23 10:10 Review of Systems Review of Systems: All systems reviewed & are unremarkable except as noted in HPI and below PMFSH Past Medical History Medical History Erythema nodosum Factor 5 Leiden mutation, heterozygous GERD (gastroesophageal reflux disease) Obesity Surgical History Surgical History Ankle fracture H/O tubal ligation Hx of cholecystectomy Family History Family History Father Hypertension Family history of elevated blood lipids Sibling Hypertension Mother Family history of rheumatoid arthritis Family history of chronic obstructive pulmonary disease Social History Social History Smoking status: Former smoker Tobacco type: cigarettes Second hand tobacco smoke exposure: No Alcohol intake: former Alcohol use details: occasion Substance use: never Substance use type: does not use Living arrangements: with family Occupation/Education: occupation Gender identity (if verbalized by the patient): Female Sexual Orientation (if Verbalized by the Patient): Straight or Heterosexual Spiritual care concerns: No Exam Narrative: White female Morbidly obese pleasant no apparent distress. ?Head:? Normocephalic atraumatic.? Eyes conjunctiva pink sclera nonicteric.? Ears externally normal. Oropharynx is clear with moist mucous membranes no exudates.? Neck is supple no lymphadenopathy nontender full range of motion.? Back is nontender.? Chest nontender.? Lungs are clear without wheezes rales or rhonchi.? Heart is regular rate rhythm without murmurs gallops or rubs.? Abdomen soft and nontender no hepatosplenomegaly or masses no CVA tenderness no abdominal bruits.? Extremities no cyanosis Or clubbing. Homans sign negative bilaterally. No ca
[2024-03-11 20:30] VITALS: BP 177/115; PULSE 90; RESP 20; O2SAT 97
[2024-03-11 20:54] LABS: Hematocrit 41.5 % (35.0-49.0); Hemoglobin 12.8 g/dL (12.0-15.0); Mean Corpuscular HGB Conc 30.8 g/dL (32-36); Mean Corpuscular Hemoglobin 25.3 pg (27.0-31.0); Mean Platelet Volume 11.2 fl (9.2-11.8); Platelet Count Result 322 K/mm3 (150-420); Red Blood Count 5.06 M/mm3 (4.20-5.40); White Blood Count 10.1 K/mm3 (4.8-10.8)
--- NOTE | 2024-03-11 21:03 | PC.NURSE ---
Pt watcing TV and resting c fiance at bedside, pt updated on wait times for labs due to machine down. Pt understanding of wait times, given ice chips and water.
[2024-03-11 21:14] LABS: INR 0.9; Partial Thromboplastin Time 26.5 Sec (23.9-30.70); Prothrombin Time 9.8 Seconds (9.50-12.1)
[2024-03-11 21:27] LABS: D Dimer 0.84 mg/L (0.19-0.50)
[2024-03-11 21:48] VITALS: BP 190/110; PULSE 95; RESP 20; O2SAT 97
[2024-03-11] MEDS: cloNIDine HCL 0.1 MG TABLET PO ×2 (21:58→23:03)
[2024-03-11 22:37] VITALS: BP 182/103
[2024-03-11 23:21] LABS: Alanine Aminotransferase 42 U/L (6-35); Albumin Level 4.1 g/dL (3.5-5.1); Alkaline Phosphatase 104 U/L (38-126); Anion Gap 5 mmol/L (4-12); Aspartate Amino Transferase 35 U/L (14-36); Bilirubin,Total 0.5 mg/dL (0.2-1.3); Blood Urea Nitrogen 17 mg/dL (7-17); Calcium 8.9 mg/dL (8.4-10.2); Carbon Dioxide 28 mmol/L (22-30); Chloride 108 mmol/L (98-107); Estimated CRCL calculation 96 ml/min; Estimated Glomerular Filt Rate 60; Glucose 135 mg/dL (65-110); NT Pro B Type Natriuretic Pept 98 pg/mL (19.9-100); Osmolality Calculated 295 mOsm/kg (285-295); Potassium 4.2 mmol/L (3.4-5.0); Sodium 141 mmol/L (137-145)
[2024-03-11 23:43] VITALS: BP 129/68; PULSE 78; RESP 20; TEMP 36.9; O2SAT 98
[2024-03-12] MEDS: ENOXAPARIN 120 MG/0.8 ML SYRINGE SUB-Q (00:15)
[2024-03-12 00:22] VITALS: BP 130/72; PULSE 79; RESP 18; TEMP 36.8; O2SAT 98
== END 2024-03-12 00:22 | disposition home or self-care (01) ==
PROVIDERS: Emergency Provider Emergency Medicine; PCP Internal Medicine
DX: R60.0 Localized edema (principal); R03.0 Elevated blood-pressure reading, without diagnosis of hypertension; D68.51 Activated protein C resistance; K21.9 Gastro-esophageal reflux disease without esophagitis; E66.01 Morbid (severe) obesity due to excess calories; Z68.43 Body mass index [BMI] 50.0-59.9, adult; Z79.82 Long term (current) use of aspirin
CPT/HCPCS: 36415; 71046; 71275; 73630; 80053; 83880; 85027; 85380; 85610; 85730; 96372; 99284; A9270; J1650; Q9967

== ENCOUNTER 2024-03-12 09:01 | Outpatient (CLI) | payer SELFPAY ==
--- NOTE | ~2024-03-12 | US_ITS ---
EXAMINATION: US venous doppler [facility] DATE: 03/12/2024 09:29 INDICATION: Lower limb edema. TECHNIQUE: Grayscale ultrasound images without and with compression and Doppler ultrasound images of the bilateral lower extremity veins were obtained. COMPARISON: Ultrasound 04/01/2020 FINDINGS: The visualized portions of right common femoral vein, profunda (deep) femoral vein, femoral vein, pop liteal vein, peroneal veins, posterior tibial veins, and greater saphenous vein outflow are patent. The visualized portions of left common femoral vein, profunda femoral vein, femoral vein, popliteal v ein, peroneal veins, posterior tibial veins, and greater saphenous vein outflow are patent. IMPRESSION: 1. No deep venous thrombosis. Reviewed, dictated and finalized at location A.
== END 2024-03-12 09:02 | disposition home or self-care (01) ==
PROVIDERS: PCP Internal Medicine; Visit Provider Emergency Medicine
DX: R60.9 Edema, unspecified (principal)
CPT/HCPCS: 93970

== ENCOUNTER 2024-06-28 08:15 | Outpatient (CLI) | payer SELFPAY ==
[2024-06-29 10:21] LABS: Alanine Aminotransferase 44 U/L (6-35); Alkaline Phosphatase 100 U/L (38-126); Anion Gap 10 mmol/L (4-12); Aspartate Amino Transferase 36 U/L (14-36); Bilirubin,Total 0.6 mg/dL (0.2-1.3); Carbon Dioxide 27 mmol/L (22-30); Chloride 104 mmol/L (98-107); Cholesterol 160 mg/dL (0-200); Estimated Glomerular Filt Rate > 60; Glucose 108 mg/dL (65-110); HDL Direct 47 mg/dL; LDL Cholesterol Calculated 87 mg/dL (<130); Potassium 4.7 mmol/L (3.4-5.0); Sodium 141 mmol/L (137-145); Triglycerides 128 mg/dL (<150)
[2024-06-29 12:21] LABS: Blood Urea Nitrogen 13 mg/dL (7-17); Osmolality Calculated 293 mOsm/kg (285-295)
== END 2024-06-28 08:16 | disposition home or self-care (01) ==
PROVIDERS: PCP Internal Medicine; Visit Provider Internal Medicine Cardiovascular Disease
DX: E78.5 Hyperlipidemia, unspecified (principal)
CPT/HCPCS: 36415; 80053; 80061

== ENCOUNTER 2024-11-04 13:36 | Emergency (ER) | payer SELFPAY ==
[2024-11-04] VITALS (7 sets, daily range): BP systolic 146–202; BP diastolic 89–118; PULSE 94–115; RESP 18–20; TEMP 36.6–36.9; O2SAT 98–99
--- NOTE | ~2024-11-04 | CT_ITS ---
CLINICAL INDICATION: Abnormal vaginal bleeding, hematuria. Personal history of factor V Leiden disord er. COMPARISON: 06/18/2019. TECHNIQUE: Multiple contiguous axial images of the abdomen and pelvis were performed without the admi nistration of intravenous contrast The dose-length product (DLP) was 1622.62 mGy-cm. Automated exposure control and iterative reconstruction technique were employed. FINDINGS/OBSERVATIONS: Visualized lower thorax: The bilateral lung bases are clear. The heart is of normal size, without pericardial effusion. Small hiatal hernia is present. Liver: The liver demonstrates homogeneous attenuation and is not enlarged measuring 16 cm in longitudinal di mension. Gallbladder and biliary system: The gallbladder is surgically absent. Pancreas: Limited evaluation of the pancreas secondary to the lack of intravenous contrast. Spleen: The spleen demonstrates homogeneous attenuation and is not enlarged measuring 6 cm in longitudinal di mension. Multiple splenules are also noted. Kidneys: The bilateral kidneys are unremarkable, without hydronephrosis or renal calculi. Adrenal glands: Unremarkable. Gastrointestinal tract: Fecal stasis within the colon. Appendix: The air-filled appendix is of normal caliber (axial series, images 101 through 120). Vasculature: Unremarkable. Lymph nodes: No pathologically enlarged or morphologically suspicious lymph nodes within the retroperitoneum or at the root of the mesentery. Pelvic structures: The bladder is decompressed, limiting its evaluation. The uterus is anteverted and retroflexed demonstrating a single bulky calcification within the fundus . Body wall and musculoskeletal: Fat containing umbilical hernia. No significant degenerative disease within the lower thoracic or lumbosacral spine. IMPRESSION: No acute pathology within the abdomen or pelvis, as detailed above. Reviewed, dictated and finalized at location A. HYSICS PROFESSOR
[2024-11-04 15:09] LABS: Add Urine Microscopic? YES; Bilirubin Urine Negative (Negative); Blood Urine 3+ (Negative); Glucose Urine UA Negative (Negative); Ketones Urine Negative (Negative); Leukocyte Esterase Ur Negative LEU/UL (Negative); Nitrate Urine Negative (Negative); Protein Urine Negative (Negative); Specific Grav Ur <= 1.005 (1.010-1.020); Urobilinogen Urine 0.2 mg/dL (0.2-1.0)
--- NOTE | 2024-11-04 15:23 | ED.GENADULT ---
HPI - General Adult General Chief complaint: SOFTWARE INTEGRATION DEVELOPER Stated complaint: abnormal vaginal bleeding Source: patient Mode of arrival: ambulatory Limitations: no limitations History of Present Illness HPI narrative: 44-year-old white female complains of hematuria for the last week and half. Scratch that gotten worse. She had some tiny clots in her urine it only occurs when she voids. She has had some spotting when she wakes up from sleeper she has been sitting for a long time. No clots during that time. Last menstrual period was 4 years ago when she was 40 she has urgency to void has had urinary continence and had had a burning and right upper quadrant that also has a sensation of incomplete voiding. She has had some chronic back pain. Was at work and had some dizziness when she stood up from the toilet after going 5 or 6 times. She felt generally weak without any numbness she is walking talking seeing and hearing okay she has had a little bit of a runny nose without cough or sore throat. She felt shaky and hot when she stood up from the toilet and her boss sent her home so she came to the emergency department for evaluation this was around 11:00 a.m. this morning . Denies any other complaints She has a history of factor 5 Leiden disorder erythema nodosum hypertension anxiety. She has no history of heart lung kidney liver disease arthritis or diabetes. She has been out of her blood pressure medicine her anxiety medicine for the last year and a half because her primary care provider drops or when she did have the same insurance. Related Data Home Medications ?Medication ?Instructions ?Recorded ?Confirmed ?Last Taken ?Type omeprazole 40 mg capsule,delayed 40 mg PO DAILY 12/03/19 06/06/24 1 Day Ago History release ~05/15/21 aspirin 81 mg chewable tablet 81 mg PO DAILY 04/25/23 06/06/24 Unknown History Allergies Allergy/AdvReac Type Severity Reaction Status Date / Time Penicillins Allergy Unknown Hives Verified 11/04/24 15:14 adhesive tape Allergy BUMPS/ITCHY Verified 11/04/24 15:14 amoxicillin Allergy Hives Verified 11/04/24 15:14 Review of Systems Review of Systems: All systems reviewed & are unremarkable except as noted in HPI and below PMFSH Past Medical History Medical History Obesity GERD (gastroesophageal reflux disease) Factor 5 Leiden mutation, heterozygous Erythema nodosum Surgical History Surgical History Ankle fracture H/O tubal ligation Hx of cholecystectomy Family History Family History Father Hypertension Family history of elevated blood lipids Sibling Hypertension Mother Family history of rheumatoid arthritis Family history of chronic obstructive pulmonary disease Social History Social History Smoking status: Former smoker Tobacco type: cigarettes Second hand tobacco smoke exposure: No Alcohol intake: former Alcohol use details: occasion Substance use: never Substance use type: does not use Living arrangements: with family Occupation/Education: occupation Gender identity (if verbalized by the patient): Female Sexual Orientation (if Verbalized by the Patient): Straight or Heterosexual Spiritual care concerns: No Exam Narrative: morbidly obese white female patient with no apparent distress.? Head normocephalic, atraumatic.? Eyes conjunctiva pink sclera nonicteric.? Extraocular movements are intact.? Ears externally normal.? TMs are normal. ?Oropharynx is clear with moist mucous membranes without exudates.? Neck is supple nontender no lymphadenopathy.? Back is nontender.? Lungs are clear.? Heart is regular rate and rhythm without murmurs gallops or rubs.? Chest wall nontender. Abdomen is soft and mild tenderness right lower quadrant. no hepatosplenomegaly or masses no CVA tenderness no abdominal bruits.? Extremities no cyanosis clubbing or edema.? Skin is warm and dry without rashes or lesions.? Neurological patient is alert and oriented x4.? Motor and sensory grossly intact.? Gait is normal. Course Vital Signs Vital signs: Vital Signs Temperature 36.6 C 11/04/24 13:36 Pulse Rate 106 H 11/04/24 13:36 Respiratory Rate 18 11/04/24 13:36 Blood Pressure 146/89 H 11/04/24 13:36 Pulse Oximetry 99 11/04/24 13:36 Oxygen Delivery Room Air 11/04/24 13:36 Temperature 36.9 C 11/04/24 17:43 Pulse Rate 106 H 11/04/24 17:43 Respiratory Rate 20 11/04/24 17:43 Blood Pressure 181/94 H 11/04/24 17:43 Pulse Oximetry 98 11/04/24 17:43 Oxygen Delivery Room Air 11/04/24 17:04 Medical Decision Making MDM Narrative Medical decision making narrative: ?Patient placed in room: Six ? History and physical was performed. CBC, coags, CMP, normal UA 11-20 RBCs specific gravity of 1.[address] abdomen pelvis without contrast: No active disease per radiologist Independent Historian: patient External Source Review: Differential Dx includes but not limited to: urinary tract infection appendicitis vaginal bleeding Medications were Reviewed: Medications given: Cipro 500 p.o. Independently Interpreted by me: labs independently interpreted by me. Shared decision Making: Social Situation Impacting Patients Care: Discussed with Dr. RODRIGEZ DIAGNOSIS: symptomatic hematuria possible UTI DISPOSITION : discharge home CONDITION AT DISCHARGE: stable Vital Signs Vital Signs: Vital Signs Temperature 36.6 C 11/04/24 13:36 Pulse Rate 106 H 11/04/24 13:36 Respiratory Rate 18 11/04/24 13:36 Blood Pressure 146/89 H 11/04/24 13:36 Pulse Oximetry 99 11/04/24 13:36 Oxygen Delivery Room Air 11/04/24 13:36 Temperature 36.9 C 11/04/24 17:43 Pulse Rate 106 H 11/04/24 17:43 Respiratory Rate 20 11/04/24 17:43 Blood Pressure 181/94 H 11/04/24 17:43 Pulse Oximetry 98 11/04/24 17:43 Oxygen Delivery Room Air 11/04/24 17:04 Lab Data 11/04/24 15:24 11/04/24 15:24 Labs: Lab Results 11/04/24 11/04/24 11/04/24 Range/Units 14:32 14:48 15:24 WBC 9.4 (4.8-10.8) K/mm3 RBC 5.91 H (4.20-5.40) M/mm3 Hgb 14.3 (12.0-15.0) g/dL Hct 46.2 (35.0-49.0) % MCV 78.2 (78.0-102.0) fL MCH 24.2 L (27.0-31.0) pg MCHC 31.0 L (32-36) g/dL RDW 15.7 H (11.6-14.4) % Plt Count 314 (150-420) K/mm3 MPV 12.1 H (9.2-11.8) fl PT 9.9 (9.50-12.1) Seconds INR 0.9 APTT 28.3 (23.9-30.70) Sec Sodium 141 (136-145) mmol/L Potassium 3.8 (3.5-5.1) mmol/L Chloride 103 (98-108) mmol/L Carbon Dioxide 26 (21-32) mmol/L Anion Gap 12 (4-12) mmol/L BUN 9 (7-18) mg/dL Creatinine 0.92 (0.55-1.02) mg/dL Estim Creat Clear Calc 81 ml/min Estimated GFR > 60 (59 - ) Glucose 104 H (70-99) mg/dL Calculated Osmolality 290 (285-295) mOsm/kg Calcium 9.2 (8.5-10.1) mg/dL Total Bilirubin 0.5 (0.00-1.00) mg/dL AST 23 (15-37) U/L ALT 47 (14-59) U/L Alkaline Phosphatase 124 H (46-116) U/L Total Protein 8.1 (6.4-8.2) g/dL Albumin 3.7 (3.4-5.0) g/dL Urine Color Light red (Yellow) Urine Appearance Sl cloudy A (Clear) Urine pH 6.0 (5.0-8.0) Ur Specific [place] <= 1.005 L (1.010-1.020) Urine Protein Negative (Negative) Urine Glucose (UA) Negative (Negative) Urine Ketones Negative (Negative) Ur Blood (Man) 3+ H (Negative) Urine Nitrate Negative (Negative) Urine Bilirubin Negative (Negative) Urine Urobilinogen 0.2 (0.2-1.0) mg/dL Leukocyte Esterase Rfl Negative (Negative) VIDHYA/UL Urine RBC 11-20 H (0-2) /hpf Ur Squamous Epith Cells Few (Few) /hpf Amorphous Sediment Few H (None) Urine Mucus /lpf Urine Test Negative 11/04/24 Range/Units 17:21 WBC (4.8-10.8) K/mm3 RBC (4.20-5.40) M/mm3 Hgb (12.0-15.0) g/dL Hct (35.0-49.0) % MCV (78.0-102.0) fL MCH (27.0-31.0) pg MCHC (32-36) g/dL RDW (11.6-14.4) % Plt Count (150-420) K/mm3 MPV (9.2-11.8) fl PT (9.50-12.1) Seconds INR APTT (23.9-30.70) Sec Sodium (136-145) mmol/L Potassium (3.5-5.1) mmol/L Chloride (98-108) mmol/L Carbon Dioxide (21-32) mmol/L Anion Gap (4-12) mmol/L BUN (7-18) mg/dL Creatinine (0.55-1.02) mg/dL Estim Creat Clear Calc ml/min Estimated GFR (59 - ) Glucose (70-99) mg/dL Calculated Osmolality (285-295) mOsm/kg Calcium (8.5-10.1) mg/dL Total Bilirubin (0.00-1.00) mg/dL AST (15-37) U/L ALT (14-59) U/L Alkaline Phosphatase (46-116) U/L Total Protein (6.4-8.2) g/dL Albumin (3.4-5.0) g/dL Urine Color Yellow (Yellow) Urine Appearance Sl cloudy A (Clear) Urine pH 5.5 (5.0-8.0) Ur Specific [place] >= 1.030 H (1.010-1.020) Urine Protein 1+ H (Negative) Urine Glucose (UA) Negative (Negative) Urine Ketones Trace H (Negative) Ur Blood (Man) 2+ H (Negative) Urine Nitrate Negative (Negative) Urine Bilirubin Negative (Negative) Urine Urobilinogen 0.2 (0.2-1.0) mg/dL Leukocyte Esterase Rfl Negative (Negative) VIDHYA/UL Urine RBC 11-20 H (0-2) /hpf Ur Squamous Epith Cells Moderate H (Few) /hpf Amorphous Sediment Moderate H (None) Urine Mucus Heavy H /lpf Urine Test Discharge Plan Discharge Clinical Impression: Hematuria Qualifiers: Hematuria type: gross Qualified Code(s): R31.0 - Gross hematuria Urinary tract infection Qualifiers: Urinary tract infection type: site unspecified Hematuria presence: with hematuria Qualified Code(s): N39.0 - Urinary tract infection, site not specified Hypertension Qualifiers: Hypertension type: unspecified Qualified Code(s): I10 - Essential (primary) hypertension Patient Disposition: Home, Self-Care Condition: Stable Instructions: Antibiotic Form, Urinary Tract Infection in Women (ED), Hematuria (ED) Additional Instructions: Cipro 250 twice a day for 5 days. Increase her fluids by mouth. Follow-up with your primary care provider this week. Record her blood pressures once a day and take those to your primary care provider Dr. Esteves. Return if you get worse or develops any new symptoms. Patient Language: Malay Prescriptions: New ciprofloxacin HCl [Cipro] 250 mg tablet 250 mg PO Q12H 5 Days Qty: 10 0RF No Action omeprazole 40 mg capsule,delayed release(DR/EC) 40 mg PO DAILY aspirin 81 mg Tablet,Chewable 81 mg PO DAILY rosuvastatin 20 mg tablet See Rx Instructions .ROUTE .COMPLEX Qty: 90 2RF Dose Instruction: TAKE ONE TABLET BY MOUTH DAILY Rx Instructions: TAKE ONE TABLET BY MOUTH DAILY Follow-up/Referrals: Isaiah Esteves MD [Primary Care Provider] - Time of Disposition: 17:44
[2024-11-04 15:32] LABS: Pregnancy On Board Control Positive; Urine Pregnancy Test Negative
[2024-11-04 15:45] LABS: Hematocrit 46.2 % (35.0-49.0); Hemoglobin 14.3 g/dL (12.0-15.0); Mean Corpuscular Hemoglobin 24.2 pg (27.0-31.0); Mean Corpuscular Volume 78.2 fL (78.0-102.0); Mean Platelet Volume 12.1 fl (9.2-11.8); Platelet Count Result 314 K/mm3 (150-420); Red Blood Count 5.91 M/mm3 (4.20-5.40); Red Cell Distribution Width 15.7 % (11.6-14.4); White Blood Count 9.4 K/mm3 (4.8-10.8)
[2024-11-04 15:59] LABS: Appearance Urine Sl Cloudy (Clear); Color Urine Light Red (Yellow)
[2024-11-04 16:01] LABS: Amorphous Sediment Urine Few; Squamous Epithelial Cell Urine Few /hpf (Few)
[2024-11-04 16:07] LABS: Alanine Aminotransferase 47 U/L (14-59); Albumin Level 3.7 g/dL (3.4-5.0); Alkaline Phosphatase 124 U/L (46-116); Anion Gap 12 mmol/L (4-12); Aspartate Amino Transferase 23 U/L (15-37); Bilirubin,Total 0.5 mg/dL (0.00-1.00); Blood Urea Nitrogen 9 mg/dL (7-18); Calcium 9.2 mg/dL (8.5-10.1); Carbon Dioxide 26 mmol/L (21-32); Chloride 103 mmol/L (98-108); Estimated CRCL calculation 81 ml/min; Estimated Glomerular Filt Rate > 60; Glucose 104 mg/dL (70-99); Osmolality Calculated 290 mOsm/kg (285-295); Potassium 3.8 mmol/L (3.5-5.1); Sodium 141 mmol/L (136-145); Total Protein 8.1 g/dL (6.4-8.2)
[2024-11-04 16:16] LABS: INR 0.9; Partial Thromboplastin Time 28.3 Sec (23.9-30.70); Prothrombin Time 9.9 Seconds (9.50-12.1)
--- NOTE | 2024-11-04 16:24 | PC.NURSE ---
[address] 1624 pt return to room. visitors in room. no complaints voiced. call keen in reach.
[2024-11-04 17:26] LABS: Add Urine Microscopic? YES; Bilirubin Urine Negative (Negative); Blood Urine 2+ (Negative); Color Urine Yellow (Yellow); Glucose Urine UA Negative (Negative); Ketones Urine Trace (Negative); Leukocyte Esterase Ur Negative LEU/UL (Negative); Nitrate Urine Negative (Negative); Protein Urine 1+ (Negative); Specific Grav Ur >= 1.030 (1.010-1.020); Urobilinogen Urine 0.2 mg/dL (0.2-1.0); pH Urine 5.5 (5.0-8.0)
--- NOTE | 2024-11-04 17:28 | PC.NURSE ---
1710 DR SAENZ WITH DISCUSSING DISCHARGE PLAN WITH PT.
[2024-11-04 17:39] LABS: Appearance Urine Sl Cloudy (Clear)
[2024-11-04 17:40] LABS: Amorphous Sediment Urine Moderate; Mucus Urine Heavy /lpf; Squamous Epithelial Cell Urine Moderate /hpf (Few)
[2024-11-04] MEDS: CIPROFLOXACIN 500 MG TAB PO (17:41)
== END 2024-11-04 17:43 | disposition home or self-care (01) ==
PROVIDERS: Emergency Provider Emergency Medicine; PCP Internal Medicine
DX: R31.0 Gross hematuria (principal); N39.0 Urinary tract infection, site not specified; I10 Essential (primary) hypertension; D68.51 Activated protein C resistance; Z87.891 Personal history of nicotine dependence
CPT/HCPCS: 36415; 74176; 80053; 81001; 81025; 85027; 85610; 85730; 99284; A9270